=== PATIENT | female | born 1970 | race Caucasian/White ===

== ENCOUNTER 2023-04-11 13:01 | Outpatient (CLI) | payer OTHER, SELFPAY | END 2023-04-11 13:02 | disposition home or self-care (01) | LOC: RAD 13:02 | PROVIDERS: PCP Family Medicine; Visit Provider Internal Medicine Hematology & Oncology | DX: C50.919 Malignant neoplasm of unspecified site of unspecified female breast (principal); Z51.81 Encounter for therapeutic drug level monitoring; Z79.899 Other long term (current) drug therapy | CPT/HCPCS: 93306 ==

== ENCOUNTER 2023-08-07 09:58 | Outpatient (CLI) | payer OTHER, SELFPAY | END 2023-08-07 09:59 | disposition home or self-care (01) | LOC: RAD 09:59 | PROVIDERS: PCP Family Medicine; Visit Provider Internal Medicine Hematology & Oncology | DX: C50.919 Malignant neoplasm of unspecified site of unspecified female breast (principal) | CPT/HCPCS: 93306 ==

== ENCOUNTER 2023-08-19 10:01 | Outpatient (CLI) | payer OTHER, SELFPAY ==
--- NOTE | 2023-08-19 11:00 | CRLHL7_ITS ---
For Patients: As a result of the Century Cures Act, medical imaging exams and procedure reports are released immediately into your electronic medical record. You may view this report before your referring provider. If you have questions, please contact your health care provider. INDICATION: Dyspnea COMPARISON: Radiographs 04/08/2023 and 01/30/2023. TECHNIQUE: CT angiogram chest with contrast, pulmonary embolism protocol. Multiplanar axial, coronal, and sagittal reformats are included. MIP images to improve detection of pulmonary emboli are included. Intravenous contrast: 95 mL Isovue 370 FINDINGS: PE: Well-timed contrast bolus. No pulmonary emboli. Normal caliber main pulmonary artery. Normal sized right heart chambers. No reflux of contrast below the diaphragm. Heart and great vessels: Right IJ chest port distal tip superior cavoatrial junction. No pericardial effusion. Normal cardiac chamber size. No atherosclerotic plaques. No aortic aneurysm. Lungs: Inspiratory phase imaging. No nodules or masses. No consolidations. Normal appearance of the pulmonary interstitium. Pleura: No pleural effusion. No pneumothorax. Airway: Normal tracheobronchial tree. Lymph nodes: No thoracic adenopathy. Mediastinum: No pneumomediastinum. Bones: No fractures. No focal bone lesions. Normal for age. Chest wall: Biopsy clip right breast. No masses. Upper abdomen: Normal. IMPRESSION: Normal exam. No pulmonary embolus. Please note that all CT scans at this facility use dose modulation, iterative reconstruction, and/or weight-based dosing when appropriate to reduce radiation dose to as low as reasonably achievable. Dictated by Isabelle Hung MD @ 08/19/2023 11:13:53 AM (Electronically Signed)
== END 2023-08-19 10:02 | disposition home or self-care (01) ==
LOC: CT 10:02
PROVIDERS: PCP Family Medicine; Visit Provider Physician Assistant
DX: R06.00 Dyspnea, unspecified (principal); C50.919 Malignant neoplasm of unspecified site of unspecified female breast; R05.9 Cough, unspecified
CPT/HCPCS: 71275; Q9967

== ENCOUNTER 2023-09-24 14:00 | Outpatient (RCR) | payer OTHER, SELFPAY ==
--- NOTE | 2023-04-03 10:58 | URNOTE ---
Received request for prior auth for Pembrolizumab (J9271). Doxorubicin (J9000), Cyclophosphamide (J9070), Pegfilgrastim (J2506), Fosaprepitant (J1453) and Palonosetron (J2469). Per [email or web address] and Per Deyvi at [facility], these have been approved 04/04/2023-10/04/2023. Call ref #[id number]
--- NOTE | 2023-04-03 15:48 | PC.NURSE ---
Pt present at [facility] for labs. Hepatitis B & C drawn. Per JULIA Lagunas CBC/CMP/FSH/Estradiol/LH were drawn at [facility] already. Pt's treatment orders were moved to 04/15/2023 as that is when pt is scheduled to start chemo.
[2023-04-03 16:54] LABS: Hepatitis B Surface Antigen* Negative (Negative)
[2023-04-03 17:11] LABS: Hepatitis C Virus Antibody* Negative (Negative)
[2023-04-05 13:00] LABS: Hepatitis B Core Antibodies Negative (Negative)
--- NOTE | 2023-04-11 15:30 | ONC.NURNOTE ---
I met with patient and her daughter for chemotherapy teaching. Contents of the chemotherapy binder were reviewed. Side effects of treatment were reviewed. Patient instructed on what to report and how to report questions or concerns. Patient plans to use a cooling cap and is aware that she will need a support person to assist her with this. It will require a cooling period of approximately 1 hour prior to treatment and several hours after that she will complete at home.
[2023-04-15 10:06] LABS: Albumin* 4.3 g/dL (3.3-5.0); Chloride* 104 mmol/L (96-114); Potassium* 3.8 mmol/L (3.6-5.1); Sodium* 136 mmol/L (135-149)
[2023-04-15 10:09] LABS: Alanine Aminotransferase* 73 U/L (4-35); Alkaline Phosphatase* 58 U/L (40-150); Aspartate Amino Transferase* 38 U/L (12-35); Bilirubin Total* 1.3 mg/dL (0.1-1.5); Blood Urea Nitrogen* 17 mg/dL (7-30); Carbon Dioxide* 23 mmol/L (20-32); Creatinine* 0.9 mg/dL (0.5-1.5); Estimated Glomerular Filt Rate 76 ml/min; Glucose* 94 mg/dL (60-115); Total Protein* 6.7 g/dL (6.0-8.3)
[2023-04-15 10:10] LABS: Calcium* 9.2 mg/dL (8.4-10.6)
[2023-04-15 10:26] VITALS: BP 121/75; PULSE 60; RESP 16; TEMP 36.1; O2SAT 97
[2023-04-15 11:40] LABS: Basophils Percent Auto 0.2 % (0.0-3.0); Eosinophils Percent Auto 3.2 % (0.0-7.0); Hematocrit 42.8 % (33.0-51.0); Hemoglobin* 14.1 gm/dL (12.0-16.0); Immature Granulocytes Pct Auto 0.2 %; Lymphocytes Percent Auto 32.2 % (20-44); Mean Corpuscular HGB Conc 33 gm/dL (32-36); Mean Corpuscular Hemoglobin 30 pg (26-34); Mean Corpuscular Volume 91 fL (80-100); Monocytes Percent Auto 8.8 % (0.0-11.0); Neutrophils Percent Auto 55.4 % (42.0-72.0); Platelet Count* 180 K/uL (140-440); RDW Coefficient of Variation % 11.9 % (11.5-15.5); Red Blood Count 4.69 m/uL (4.00-5.20); White Blood Count* 4.44 K/uL (4.50-11.00)
[2023-04-15 11:50] LABS: Slide Review Reflex No
[2023-04-15] MEDS: PEMBROLIZUMAB 200 MG, TUBING PRIMARY 1 EACH, In-line 0.2 micron filter set 1 EACH in 0.... 216 MG IVPB (12:27)
[2023-04-15] MEDS: PALONOSETRON 0.25 MG/5 ML inj IV (13:12)
[2023-04-15] MEDS: dexAMETHasone 10 MG in 0.9 % SODIUM CHLORIDE 100 ml 100 ML 420 MG IVPB (13:12)
[2023-04-15] MEDS: FOSAPREPITANT 150 MG inj 150 MG in 0.9 % SODIUM CHLORIDE 250 ml 250 ML 780 MG IVPB (13:32)
[2023-04-15] MEDS: DOXOrubicin 2 MG/ML inj 120 MG IVP (14:02)
--- NOTE | 2023-04-15 14:49 | ONC.NURNOTE ---
chemo started a bit late today. taking time for labs to come back and questions from pt and family. went well. pt francisco well. did run cytoxin over 1 hr.
[2023-04-16 16:11] LABS: Cortisol, Serum 9.8 ug/dL
--- NOTE | 2023-04-19 14:36 | ONC.NURNOTE ---
Pt left message with breast navigators regarding questions about hair loss and sleep. Power Hammer Operator returned call and left message for pt to call the infusion center or she can speak to the breast navigators on Saturday of next week.
--- NOTE | 2023-04-19 16:04 | ONC.NURNOTE ---
Annetta called askinig when her hair starts falling out. 3 weeks. states tired today. enc her this is normal and rest. is feeling well. drinking water. reviewed s/s dehydration. reviewed taking antinausea meds prn day 3. enc her to call if any questions.
--- NOTE | 2023-04-22 15:29 | ONC.NURNOTE ---
Pt called with questions about body fluid precautions following chemo and also limits of exercise with her recently placed port. Reviewed [facility] protocol on chemo in body fluids x ~48 hrs. Reviewed to ease into large arm movements/weights and if port becomes sore, to rest that arm and ice as needed. Pt participates in [employer] and will adjust activities to her tolerance.
[2023-05-02 12:37] LABS: Basophils Absolute Auto 0.03 K/uL (0.00-0.30); Basophils Percent Auto 0.5 % (0.0-3.0); Eosinophils Absolute Auto 0.02 K/uL (0.00-0.50); Eosinophils Percent Auto 0.3 % (0.0-7.0); Hematocrit 38.1 % (33.0-51.0); Hemoglobin* 12.6 gm/dL (12.0-16.0); Immature Granulocytes Abs Auto 0.13 K/uL (0.00-0.30); Lymphocytes Absolute Auto 1.39 K/uL (0.90-2.90); Lymphocytes Percent Auto 21.3 % (20-44); Mean Corpuscular HGB Conc 33 gm/dL (32-36); Mean Corpuscular Hemoglobin 30 pg (26-34); Mean Corpuscular Volume 91 fL (80-100); Monocytes Percent Auto 10.6 % (0.0-11.0); Neutrophils Absolute Auto 4.28 K/uL (1.7-7.0); Neutrophils Percent Auto 65.3 % (42.0-72.0); Platelet Count* 190 K/uL (140-440); RDW Coefficient of Variation % 12.3 % (11.5-15.5); White Blood Count* 6.54 K/uL (4.50-11.00)
[2023-05-02 12:43] LABS: Slide Review Reflex No
[2023-05-02 12:57] LABS: Albumin* 4.2 g/dL (3.3-5.0); Chloride* 104 mmol/L (96-114); Sodium* 136 mmol/L (135-149)
[2023-05-02 12:59] LABS: Creatinine* 0.9 mg/dL (0.5-1.5); Estimated Glomerular Filt Rate 76 ml/min
[2023-05-02 13:00] LABS: Alanine Aminotransferase* 58 U/L (4-35); Alkaline Phosphatase* 73 U/L (40-150); Aspartate Amino Transferase* 37 U/L (12-35); Bilirubin Total* 0.5 mg/dL (0.1-1.5); Blood Urea Nitrogen* 17 mg/dL (7-30); Calcium* 8.9 mg/dL (8.4-10.6); Carbon Dioxide* 23 mmol/L (20-32); Glucose* 95 mg/dL (60-115); Total Protein* 6.6 g/dL (6.0-8.3)
--- NOTE | 2023-05-03 12:25 | URNOTE ---
Request for Pegfilgrastim (J2506) was denied (Kathryn DUMONT, [facility] aware 05/03/23) Ref#[id number]. Per Rep Tina05/03/23 at [facility] due to not meeting guidelines for neutropenia.
[2023-05-03 19:13] LABS: Cortisol, Serum 6.5 ug/dL
[2023-05-06 08:21] VITALS: BP 125/79; PULSE 64; RESP 16; TEMP 36; O2SAT 98
[2023-05-06] MEDS: PEMBROLIZUMAB 200 MG, TUBING PRIMARY 1 EACH, In-line 0.2 micron filter set 1 EACH in 0.... 216 MG IVPB (09:08)
[2023-05-06] MEDS: dexAMETHasone 10 MG in 0.9 % SODIUM CHLORIDE 100 ml 100 ML 404 MG IVPB (09:43)
[2023-05-06] MEDS: PALONOSETRON 0.25 MG/5 ML inj IV (09:43)
[2023-05-06] MEDS: FOSAPREPITANT 150 MG inj 150 MG in 0.9 % SODIUM CHLORIDE 250 ml 250 ML 800 MG IVPB (10:15)
[2023-05-06] MEDS: DOXOrubicin 2 MG/ML inj 120 MG IVP (10:42)
[2023-05-13 11:23] LABS: Basophils Percent Auto 0.5 % (0.0-3.0); Eosinophils Percent Auto 1.6 % (0.0-7.0); Hematocrit 35.4 % (33.0-51.0); Immature Granulocytes Pct Auto 1.6 %; Lymphocytes Percent Auto 29.5 % (20-44); Mean Corpuscular HGB Conc 34 gm/dL (32-36); Mean Corpuscular Hemoglobin 30 pg (26-34); Mean Corpuscular Volume 89 fL (80-100); Neutrophils Percent Auto 65.8 % (42.0-72.0); Platelet Count* 222 K/uL (140-440); RDW Coefficient of Variation % 12.1 % (11.5-15.5); Red Blood Count 3.96 m/uL (4.00-5.20)
[2023-05-13 12:25] LABS: Slide Review Reflex Yes; White Blood Count* 1.93 K/uL (4.50-11.00)
[2023-05-13 12:26] LABS: Slide Review Acceptable Review (Acceptable)
[2023-05-16 14:52] LABS: Basophils Percent Auto 0.9 % (0.0-3.0); Eosinophils Percent Auto 3.5 % (0.0-7.0); Hematocrit 34.8 % (33.0-51.0); Hemoglobin* 11.6 gm/dL (12.0-16.0); Lymphocytes Percent Auto 51.3 % (20-44); Mean Corpuscular HGB Conc 33 gm/dL (32-36); Mean Corpuscular Hemoglobin 30 pg (26-34); Mean Corpuscular Volume 90 fL (80-100); Monocytes Percent Auto 4.3 % (0.0-11.0); Platelet Count* 168 K/uL (140-440); RDW Coefficient of Variation % 11.9 % (11.5-15.5); Red Blood Count 3.86 m/uL (4.00-5.20)
[2023-05-16 15:21] LABS: Slide Review Reflex No; White Blood Count* 1.15 K/uL (4.50-11.00)
[2023-05-20 11:33] LABS: Eosinophils Percent Auto 6.1 % (0.0-7.0); Hematocrit 35.4 % (33.0-51.0); Hemoglobin* 11.9 gm/dL (12.0-16.0); Lymphocytes Percent Auto 54.1 % (20-44); Mean Corpuscular HGB Conc 34 gm/dL (32-36); Mean Corpuscular Hemoglobin 30 pg (26-34); Mean Corpuscular Volume 90 fL (80-100); Monocytes Percent Auto 17.3 % (0.0-11.0); Neutrophils Percent Auto 20.5 % (42.0-72.0); Platelet Count* 80 K/uL (140-440); RDW Coefficient of Variation % 12.4 % (11.5-15.5); Red Blood Count 3.95 m/uL (4.00-5.20)
[2023-05-20 12:07] LABS: Slide Review Reflex Yes; White Blood Count* 0.98 K/uL (4.50-11.00)
[2023-05-20 12:45] LABS: Slide Review Acceptable Review (Acceptable)
[2023-05-20 15:33] VITALS: BP 113/75; PULSE 77; RESP 16; TEMP 35.7; O2SAT 99
[2023-05-20] MEDS: TBO-FILGRASTIM 300 MCG/0.5 ML INJ SUBCUT (15:40)
[2023-05-21 10:27] VITALS: BP 116/78; PULSE 72; RESP 16; TEMP 36.6; O2SAT 98
[2023-05-21 11:12] LABS: Basophils Percent Auto 1.5 % (0.0-3.0); Eosinophils Percent Auto 5.3 % (0.0-7.0); Hematocrit 35.5 % (33.0-51.0); Hemoglobin* 11.9 gm/dL (12.0-16.0); Lymphocytes Percent Auto 43.6 % (20-44); Mean Corpuscular HGB Conc 34 gm/dL (32-36); Mean Corpuscular Hemoglobin 30 pg (26-34); Mean Corpuscular Volume 90 fL (80-100); Monocytes Percent Auto 26.3 % (0.0-11.0); Neutrophils Percent Auto 23.3 % (42.0-72.0); Platelet Count* 72 K/uL (140-440); Red Blood Count 3.93 m/uL (4.00-5.20)
[2023-05-21 11:35] LABS: White Blood Count* 1.33 K/uL (4.50-11.00)
[2023-05-21 11:36] LABS: Slide Review Acceptable Review (Acceptable); Slide Review Reflex Yes
[2023-05-21] MEDS: FILGRASTIM-SNDZ 300 MCG/0.5 ML SYRINGE SUBCUT (11:49)
--- NOTE | 2023-05-21 13:25 | URNOTE ---
Zarxio (Q5101) has been approved 300mcg daily, 05/16/2023-05/27/2023. Auth #[id number] Neulasta (J2506) has been approved, 6mg every 21 days. 05/28/2023-08/25/2023. Auth #[id number]
[2023-05-22 10:24] VITALS: BP 120/75; PULSE 80; RESP 16; TEMP 35.9; O2SAT 97
[2023-05-22 10:39] LABS: Eosinophils Percent Auto 4.1 % (0.0-7.0); Hematocrit 35.8 % (33.0-51.0); Hemoglobin* 12.1 gm/dL (12.0-16.0); Lymphocytes Percent Auto 40.3 % (20-44); Mean Corpuscular HGB Conc 34 gm/dL (32-36); Mean Corpuscular Hemoglobin 31 pg (26-34); Mean Corpuscular Volume 90 fL (80-100); Monocytes Percent Auto 29.1 % (0.0-11.0); Neutrophils Percent Auto 24.5 % (42.0-72.0); Platelet Count* 78 K/uL (140-440); RDW Coefficient of Variation % 13.1 % (11.5-15.5); Red Blood Count 3.97 m/uL (4.00-5.20)
[2023-05-22 11:09] LABS: Slide Review Reflex Yes; White Blood Count* 1.96 K/uL (4.50-11.00)
[2023-05-22 11:10] LABS: Slide Review Acceptable Review (Acceptable)
[2023-05-22] MEDS: FILGRASTIM-SNDZ 300 MCG/0.5 ML SYRINGE SUBCUT (11:22)
[2023-05-23 10:28] VITALS: BP 124/79; PULSE 66; RESP 16; TEMP 35.8; O2SAT 100
[2023-05-23 10:46] LABS: Basophils Absolute Auto 0.02 K/uL (0.00-0.30); Basophils Percent Auto 0.4 % (0.0-3.0); Eosinophils Absolute Auto 0.11 K/uL (0.00-0.50); Hematocrit 35.6 % (33.0-51.0); Hemoglobin* 11.9 gm/dL (12.0-16.0); Immature Granulocytes Abs Auto 0.31 K/uL (0.00-0.30); Immature Granulocytes Pct Auto 5.6 %; Lymphocytes Percent Auto 17.4 % (20-44); Mean Corpuscular HGB Conc 33 gm/dL (32-36); Mean Corpuscular Hemoglobin 30 pg (26-34); Mean Corpuscular Volume 91 fL (80-100); Monocytes Percent Auto 22.8 % (0.0-11.0); Neutrophils Absolute Auto 2.88 K/uL (1.7-7.0); Neutrophils Percent Auto 51.8 % (42.0-72.0); Platelet Count* 85 K/uL (140-440); RDW Coefficient of Variation % 13.4 % (11.5-15.5); Red Blood Count 3.92 m/uL (4.00-5.20); White Blood Count* 5.56 K/uL (4.50-11.00)
[2023-05-23 10:53] LABS: Slide Review Reflex Yes
[2023-05-23 11:26] LABS: Slide Review Acceptable Review (Acceptable)
[2023-05-27 08:19] LABS: Basophils Absolute Auto 0.03 K/uL (0.00-0.30); Basophils Percent Auto 0.5 % (0.0-3.0); Eosinophils Absolute Auto 0.07 K/uL (0.00-0.50); Eosinophils Percent Auto 1.2 % (0.0-7.0); Hematocrit 37.3 % (33.0-51.0); Hemoglobin* 12.6 gm/dL (12.0-16.0); Immature Granulocytes Abs Auto 0.74 K/uL (0.00-0.30); Immature Granulocytes Pct Auto 12.5 %; Lymphocytes Absolute Auto 1.34 K/uL (0.90-2.90); Lymphocytes Percent Auto 22.6 % (20-44); Mean Corpuscular HGB Conc 34 gm/dL (32-36); Mean Corpuscular Hemoglobin 30 pg (26-34); Mean Corpuscular Volume 90 fL (80-100); Monocytes Percent Auto 15.9 % (0.0-11.0); Neutrophils Absolute Auto 2.81 K/uL (1.7-7.0); Neutrophils Percent Auto 47.3 % (42.0-72.0); Platelet Count* 126 K/uL (140-440); Red Blood Count 4.16 m/uL (4.00-5.20); White Blood Count* 5.93 K/uL (4.50-11.00)
[2023-05-27 08:24] LABS: Slide Review Reflex Yes
[2023-05-27 08:33] LABS: Albumin* 4.1 g/dL (3.3-5.0); Chloride* 105 mmol/L (96-114); Potassium* 3.8 mmol/L (3.6-5.1); Sodium* 139 mmol/L (135-149)
[2023-05-27 08:36] LABS: Alanine Aminotransferase* 52 U/L (4-35); Alkaline Phosphatase* 55 U/L (40-150); Aspartate Amino Transferase* 42 U/L (12-35); Bilirubin Total* 0.5 mg/dL (0.1-1.5); Blood Urea Nitrogen* 18 mg/dL (7-30); Carbon Dioxide* 25 mmol/L (20-32); Creatinine* 0.8 mg/dL (0.5-1.5); Est. Creatinine Clearance* 75.26; Estimated Glomerular Filt Rate 88 ml/min; Glucose* 97 mg/dL (60-115); Total Protein* 6.4 g/dL (6.0-8.3)
[2023-05-27 08:37] LABS: Calcium* 9.1 mg/dL (8.4-10.6)
[2023-05-27 08:53] LABS: Slide Review Acceptable Review (Acceptable)
[2023-05-27] MEDS: PEMBROLIZUMAB 200 MG, TUBING PRIMARY 1 EACH, In-line 0.2 micron filter set 1 EACH in 0.... 216 MG IVPB (10:25)
[2023-05-27] MEDS: PALONOSETRON 0.25 MG/5 ML inj IV (11:00)
[2023-05-27] MEDS: dexAMETHasone 10 MG in 0.9 % SODIUM CHLORIDE 100 ml 100 ML 420 MG IVPB (11:00)
[2023-05-27] MEDS: FOSAPREPITANT 150 MG inj 150 MG in 0.9 % SODIUM CHLORIDE 250 ml 250 ML 780 MG IVPB (11:22)
[2023-05-27] MEDS: DOXOrubicin 2 MG/ML inj 120 MG IVP (11:50)
[2023-05-28] MEDS: PEGFILGRASTIM 6 MG/0.6 ML SYRINGE SUBCUT (12:58)
[2023-05-28 13:00] VITALS: BP 129/77; PULSE 65; RESP 14; TEMP 36.1; O2SAT 98
[2023-05-28 18:17] LABS: Cortisol, Serum 13.2 ug/dL
[2023-05-29 14:47] LABS: Total T3 135 ng/dL (80-200)
[2023-06-17 09:13] VITALS: BP 113/73; PULSE 83; RESP 18; TEMP 36.6; O2SAT 98
[2023-06-17 09:53] LABS: Eosinophils Percent Auto 0.2 % (0.0-7.0); Hematocrit 34.1 % (33.0-51.0); Hemoglobin* 11.6 gm/dL (12.0-16.0); Immature Granulocytes Pct Auto 0.5 %; Lymphocytes Percent Auto 18.1 % (20-44); Mean Corpuscular HGB Conc 34 gm/dL (32-36); Mean Corpuscular Hemoglobin 31 pg (26-34); Mean Corpuscular Volume 91 fL (80-100); Monocytes Percent Auto 13.4 % (0.0-11.0); Neutrophils Percent Auto 66.8 % (42.0-72.0); Platelet Count* 206 K/uL (140-440); RDW Coefficient of Variation % 14.6 % (11.5-15.5); Red Blood Count 3.76 m/uL (4.00-5.20); White Blood Count* 4.04 K/uL (4.50-11.00)
[2023-06-17 09:56] LABS: Slide Review Reflex No
[2023-06-17 10:08] LABS: Albumin* 4.1 g/dL (3.3-5.0); Chloride* 106 mmol/L (96-114)
[2023-06-17 10:09] LABS: Potassium* 3.7 mmol/L (3.6-5.1); Sodium* 137 mmol/L (135-149)
[2023-06-17 10:11] LABS: Aspartate Amino Transferase* 31 U/L (12-35); Bilirubin Total* 0.5 mg/dL (0.1-1.5); Carbon Dioxide* 24 mmol/L (20-32); Creatinine* 0.9 mg/dL (0.5-1.5); Estimated Glomerular Filt Rate 76 ml/min; Total Protein* 6.6 g/dL (6.0-8.3)
[2023-06-17 10:12] LABS: Alanine Aminotransferase* 34 U/L (4-35); Alkaline Phosphatase* 56 U/L (40-150); Blood Urea Nitrogen* 19 mg/dL (7-30); Calcium* 8.9 mg/dL (8.4-10.6); Glucose* 115 mg/dL (60-115)
--- NOTE | 2023-06-17 11:45 | ONC.NURNOTE ---
I met with patient during her infusion visit for chemotherapy education. Printed information re: Paclitaxel and Carboplatin was reviewed and given to patient. We discussed the use of cryotherapy to prevent neuropathy. Patient already has the information about how to order supplies.
[2023-06-17] MEDS: PEMBROLIZUMAB 200 MG, TUBING PRIMARY 1 EACH, In-line 0.2 micron filter set 1 EACH in 0.... 216 MG IVPB (12:24)
[2023-06-17] MEDS: PALONOSETRON 0.25 MG/5 ML inj IV (13:05)
[2023-06-17] MEDS: dexAMETHasone 10 MG in 0.9 % SODIUM CHLORIDE 100 ml 100 ML 420 MG IVPB (13:05)
[2023-06-17] MEDS: FOSAPREPITANT 150 MG inj 150 MG in 0.9 % SODIUM CHLORIDE 250 ml 250 ML 800 MG IVPB (13:27)
[2023-06-17] MEDS: DOXOrubicin 2 MG/ML inj 120 MG IVP (14:01)
[2023-06-18 20:17] LABS: Cortisol, Serum 11.1 ug/dL
--- NOTE | 2023-06-25 10:24 | URNOTE ---
Per [facility], Paclitaxel (J9267) has been approved 07/09/2023-10/09/2023. Carboplatin (J9045) has been approved 07/09/2023-10/07/2023 Pembrolizumab (J9271) has been approved 07/09/2023-10/09/2023 Per Hunter Estes at [facility], Palonoesetron (J2469) does not required prior auth if billing amount is less than $5000. Verified with carlyle Null that the billing amount is less than $5000.
[2023-07-09 08:37] LABS: Basophils Percent Auto 0.5 % (0.0-3.0); Eosinophils Percent Auto 1.6 % (0.0-7.0); Hematocrit 34.4 % (33.0-51.0); Hemoglobin* 11.5 gm/dL (12.0-16.0); Immature Granulocytes Pct Auto 0.5 %; Lymphocytes Percent Auto 17.1 % (20-44); Mean Corpuscular HGB Conc 33 gm/dL (32-36); Mean Corpuscular Hemoglobin 31 pg (26-34); Mean Corpuscular Volume 94 fL (80-100); Monocytes Percent Auto 14.3 % (0.0-11.0); Platelet Count* 187 K/uL (140-440); RDW Coefficient of Variation % 16.1 % (11.5-15.5); Red Blood Count 3.66 m/uL (4.00-5.20); White Blood Count* 4.26 K/uL (4.50-11.00)
[2023-07-09 08:38] LABS: Slide Review Reflex No
[2023-07-09 08:55] LABS: Albumin* 4.1 g/dL (3.3-5.0); Chloride* 106 mmol/L (96-114); Potassium* 4.1 mmol/L (3.6-5.1); Sodium* 138 mmol/L (135-149)
[2023-07-09 08:58] LABS: Alanine Aminotransferase* 37 U/L (4-35); Alkaline Phosphatase* 47 U/L (40-150); Anion Gap 5 mEq/L (7-15); Aspartate Amino Transferase* 37 U/L (12-35); Bilirubin Total* 0.5 mg/dL (0.1-1.5); Blood Urea Nitrogen* 14 mg/dL (7-30); Carbon Dioxide* 27 mmol/L (20-32); Creatinine* 0.8 mg/dL (0.5-1.5); Est. Creatinine Clearance* 75.26; Estimated Glomerular Filt Rate 88 ml/min; Glucose* 81 mg/dL (60-115); Total Protein* 6.5 g/dL (6.0-8.3)
[2023-07-09 08:59] LABS: Calcium* 9.5 mg/dL (8.4-10.6)
[2023-07-09] MEDS: PEMBROLIZUMAB 200 MG, TUBING PRIMARY 1 EACH, In-line 0.2 micron filter set 1 EACH in 0.... 216 MG IVPB (10:18)
[2023-07-09] MEDS: PALONOSETRON 0.25 MG/5 ML inj IV (10:50)
[2023-07-09] MEDS: dexAMETHasone 20 MG in 0.9 % SODIUM CHLORIDE 100 ml 100 ML 408 MG IVPB (10:50)
[2023-07-09] MEDS: FAMOTIDINE 20 MG, diphenhydrAMINE 50 MG in 0.9 % SODIUM CHLORIDE 100 ml 100 ML 309 MG IVPB (11:15)
[2023-07-09] MEDS: 0.9 % SODIUM CHLORIDE 250 ml IV (16:11)
[2023-07-09] MEDS: HEPARIN 500 UNIT/5 ML SYRINGE IVF (16:11)
[2023-07-09] MEDS: SODIUM CHLORIDE 0.9 % (FLUSH) 10 ML SYRINGE IVF (16:11)
--- NOTE | 2023-07-09 17:06 | ONC.NURNOTE ---
Tolerated Taxel/Carbo well.
[2023-07-11 03:24] LABS: Cortisol, Serum 10.3 ug/dL
[2023-07-15 08:54] VITALS: BP 122/75; PULSE 76; RESP 16; TEMP 36.4; O2SAT 97
[2023-07-15 09:19] LABS: Basophils Percent Auto 0.6 % (0.0-3.0); Hematocrit 32.9 % (33.0-51.0); Lymphocytes Percent Auto 23.1 % (20-44); Mean Corpuscular HGB Conc 33 gm/dL (32-36); Mean Corpuscular Hemoglobin 32 pg (26-34); Mean Corpuscular Volume 96 fL (80-100); Monocytes Percent Auto 7.8 % (0.0-11.0); Neutrophils Percent Auto 66.5 % (42.0-72.0); Platelet Count* 179 K/uL (140-440); RDW Coefficient of Variation % 15.1 % (11.5-15.5); Red Blood Count 3.43 m/uL (4.00-5.20); White Blood Count* 3.08 K/uL (4.50-11.00)
[2023-07-15 09:20] LABS: Slide Review Reflex No
[2023-07-15 09:32] LABS: Albumin* 3.9 g/dL (3.3-5.0); Chloride* 109 mmol/L (96-114)
[2023-07-15 09:33] LABS: Potassium* 3.9 mmol/L (3.6-5.1); Sodium* 138 mmol/L (135-149)
[2023-07-15 09:35] LABS: Anion Gap 5 mEq/L (7-15); Aspartate Amino Transferase* 33 U/L (12-35); Bilirubin Total* 0.7 mg/dL (0.1-1.5); Carbon Dioxide* 24 mmol/L (20-32); Creatinine* 0.9 mg/dL (0.5-1.5); Estimated Glomerular Filt Rate 76 ml/min; Total Protein* 6.3 g/dL (6.0-8.3)
[2023-07-15 09:36] LABS: Alanine Aminotransferase* 43 U/L (4-35); Alkaline Phosphatase* 42 U/L (40-150); Blood Urea Nitrogen* 17 mg/dL (7-30); Calcium* 9.2 mg/dL (8.4-10.6); Glucose* 111 mg/dL (60-115)
[2023-07-15] MEDS: FAMOTIDINE 20 MG, diphenhydrAMINE 50 MG in 0.9 % SODIUM CHLORIDE 100 ml 100 ML 309 MG IVPB (10:34)
[2023-07-15] MEDS: 0.9 % SODIUM CHLORIDE 250 ml IV (10:58)
[2023-07-15] MEDS: PALONOSETRON 0.25 MG/5 ML inj IV (11:05)
[2023-07-15] MEDS: dexAMETHasone 20 MG in 0.9 % SODIUM CHLORIDE 100 ml 100 ML 408 MG IVPB (11:05)
[2023-07-15] MEDS: HEPARIN 500 UNIT/5 ML SYRINGE IVF (13:30)
[2023-07-15] MEDS: SODIUM CHLORIDE 0.9 % (FLUSH) 10 ML SYRINGE IVF (13:30)
[2023-07-22 10:18] LABS: Basophils Percent Auto 0.6 % (0.0-3.0); Eosinophils Percent Auto 4.3 % (0.0-7.0); Hematocrit 32.4 % (33.0-51.0); Hemoglobin* 11.1 gm/dL (12.0-16.0); Immature Granulocytes Pct Auto 0.3 %; Lymphocytes Percent Auto 17.6 % (20-44); Mean Corpuscular HGB Conc 34 gm/dL (32-36); Mean Corpuscular Hemoglobin 32 pg (26-34); Mean Corpuscular Volume 95 fL (80-100); Monocytes Percent Auto 6.8 % (0.0-11.0); Neutrophils Percent Auto 70.4 % (42.0-72.0); Platelet Count* 164 K/uL (140-440); RDW Coefficient of Variation % 14.8 % (11.5-15.5); Red Blood Count 3.43 m/uL (4.00-5.20); White Blood Count* 3.52 K/uL (4.50-11.00)
[2023-07-22 10:39] LABS: Slide Review Reflex No
[2023-07-22 10:43] VITALS: BP 110/67; PULSE 68; RESP 16; TEMP 36.2; O2SAT 98
[2023-07-22 10:46] LABS: Albumin* 3.9 g/dL (3.3-5.0); Chloride* 106 mmol/L (96-114); Potassium* 3.8 mmol/L (3.6-5.1); Sodium* 136 mmol/L (135-149)
[2023-07-22 10:49] LABS: Alanine Aminotransferase* 46 U/L (4-35); Alkaline Phosphatase* 44 U/L (40-150); Anion Gap 4 mEq/L (7-15); Aspartate Amino Transferase* 37 U/L (12-35); Bilirubin Total* 0.6 mg/dL (0.1-1.5); Blood Urea Nitrogen* 19 mg/dL (7-30); Carbon Dioxide* 26 mmol/L (20-32); Creatinine* 0.8 mg/dL (0.5-1.5); Est. Creatinine Clearance* 75.26; Estimated Glomerular Filt Rate 88 ml/min; Glucose* 118 mg/dL (60-115); Total Protein* 6.3 g/dL (6.0-8.3)
[2023-07-22 10:50] LABS: Calcium* 9.1 mg/dL (8.4-10.6)
[2023-07-22] MEDS: 0.9 % SODIUM CHLORIDE 250 ml IV (11:00)
[2023-07-22] MEDS: PALONOSETRON 0.25 MG/5 ML inj IV (11:26)
[2023-07-22] MEDS: dexAMETHasone 20 MG in 0.9 % SODIUM CHLORIDE 100 ml 100 ML 420 MG IVPB (11:26)
[2023-07-22] MEDS: FAMOTIDINE 20 MG, diphenhydrAMINE 50 MG in 0.9 % SODIUM CHLORIDE 100 ml 100 ML 315 MG IVPB (11:44)
[2023-07-22] MEDS: HEPARIN 500 UNIT/5 ML SYRINGE IVF (14:15)
[2023-07-22] MEDS: SODIUM CHLORIDE 0.9 % (FLUSH) 10 ML SYRINGE IVF (14:15)
--- NOTE | 2023-07-26 16:27 | ONC.NURNOTE ---
Pt called saying she's having scant bloody noses the last few days, describing it as not dripping but she can feel a clot in her nose. She began using a humidifier last night. Recommended pt swab aquaphor just inside nostrils 1-2x BID for moisturizing. She also notes taste changes, says her tongue feels oily but denies sores or pain. Recommended pt begin salt or baking soda rinses QID to prevent mucositis. Pt agreeable to try these ideas.
[2023-07-29 08:51] LABS: Basophils Percent Auto 0.6 % (0.0-3.0); Eosinophils Percent Auto 3.3 % (0.0-7.0); Hematocrit 31.2 % (33.0-51.0); Hemoglobin* 10.7 gm/dL (12.0-16.0); Immature Granulocytes Pct Auto 1.2 %; Lymphocytes Percent Auto 23.4 % (20-44); Mean Corpuscular HGB Conc 34 gm/dL (32-36); Mean Corpuscular Hemoglobin 32 pg (26-34); Mean Corpuscular Volume 94 fL (80-100); Monocytes Percent Auto 5.9 % (0.0-11.0); Neutrophils Percent Auto 65.6 % (42.0-72.0); Platelet Count* 144 K/uL (140-440); RDW Coefficient of Variation % 14.2 % (11.5-15.5); Red Blood Count 3.31 m/uL (4.00-5.20); White Blood Count* 3.38 K/uL (4.50-11.00)
[2023-07-29 08:53] LABS: Slide Review Reflex No
[2023-07-29 09:06] LABS: Albumin* 3.8 g/dL (3.3-5.0); Chloride* 107 mmol/L (96-114)
[2023-07-29 09:07] LABS: Potassium* 3.8 mmol/L (3.6-5.1); Sodium* 138 mmol/L (135-149)
[2023-07-29 09:09] LABS: Anion Gap 8 mEq/L (7-15); Aspartate Amino Transferase* 42 U/L (12-35); Bilirubin Total* 0.6 mg/dL (0.1-1.5); Blood Urea Nitrogen* 24 mg/dL (7-30); Carbon Dioxide* 23 mmol/L (20-32); Creatinine* 0.9 mg/dL (0.5-1.5); Estimated Glomerular Filt Rate 76 ml/min; Total Protein* 6.3 g/dL (6.0-8.3)
[2023-07-29 09:10] LABS: Alanine Aminotransferase* 60 U/L (4-35); Alkaline Phosphatase* 54 U/L (40-150); Calcium* 8.9 mg/dL (8.4-10.6); Glucose* 106 mg/dL (60-115)
[2023-07-29] MEDS: PEMBROLIZUMAB 200 MG, TUBING PRIMARY 1 EACH, In-line 0.2 micron filter set 1 EACH in 0.... 216 MG IVPB (10:41)
[2023-07-29] MEDS: SODIUM CHLORIDE 0.9 % (FLUSH) 10 ML SYRINGE IVF (11:27)
[2023-07-29] MEDS: dexAMETHasone 20 MG in 0.9 % SODIUM CHLORIDE 100 ml 100 ML 408 MG IVPB (11:27)
[2023-07-29] MEDS: PALONOSETRON 0.25 MG/5 ML inj IV (11:27)
[2023-07-29] MEDS: 0.9 % SODIUM CHLORIDE 250 ml IV (11:28)
[2023-07-29] MEDS: HEPARIN 500 UNIT/5 ML SYRINGE IVF (11:28)
[2023-07-29] MEDS: FAMOTIDINE 20 MG, diphenhydrAMINE 50 MG in 0.9 % SODIUM CHLORIDE 100 ml 100 ML 309 MG IVPB (11:52)
[2023-07-31 07:45] LABS: Cortisol, Serum 13.1 ug/dL
[2023-08-05 08:29] VITALS: BP 112/54; PULSE 94; RESP 16; TEMP 36.6; O2SAT 98
[2023-08-05 09:00] LABS: Basophils Percent Auto 0.5 % (0.0-3.0); Eosinophils Percent Auto 2.5 % (0.0-7.0); Hematocrit 29.8 % (33.0-51.0); Hemoglobin* 10.3 gm/dL (12.0-16.0); Immature Granulocytes Pct Auto 0.5 %; Lymphocytes Percent Auto 16.6 % (20-44); Mean Corpuscular HGB Conc 35 gm/dL (32-36); Mean Corpuscular Hemoglobin 32 pg (26-34); Mean Corpuscular Volume 93 fL (80-100); Monocytes Percent Auto 12.1 % (0.0-11.0); Neutrophils Percent Auto 67.8 % (42.0-72.0); Platelet Count* 88 K/uL (140-440); RDW Coefficient of Variation % 13.9 % (11.5-15.5); Red Blood Count 3.19 m/uL (4.00-5.20)
[2023-08-05 09:07] LABS: Slide Review Reflex Yes; White Blood Count* 1.99 K/uL (4.50-11.00)
[2023-08-05 09:14] LABS: Albumin* 3.9 g/dL (3.3-5.0); Chloride* 105 mmol/L (96-114); Potassium* 3.7 mmol/L (3.6-5.1); Sodium* 135 mmol/L (135-149)
[2023-08-05 09:17] LABS: Alanine Aminotransferase* 74 U/L (4-35); Alkaline Phosphatase* 51 U/L (40-150); Anion Gap 6 mEq/L (7-15); Aspartate Amino Transferase* 59 U/L (12-35); Bilirubin Total* 0.9 mg/dL (0.1-1.5); Blood Urea Nitrogen* 14 mg/dL (7-30); Carbon Dioxide* 24 mmol/L (20-32); Creatinine* 0.9 mg/dL (0.5-1.5); Estimated Glomerular Filt Rate 76 ml/min; Glucose* 155 mg/dL (60-115); Total Protein* 6.4 g/dL (6.0-8.3)
[2023-08-05 09:28] LABS: Slide Review Acceptable Review (Acceptable)
--- NOTE | 2023-08-05 09:32 | PC.NURSE ---
Pt present at [facility] for labs and chemo. Plt 88, per Shelbie Andre APRN and hold parameters, chemo held this week. Pt will return next week and will also be scheduled with a provider to be assessed. RN educated pt on NSAID use and bleeding monitoring. Annetta hasn't used any ibuprofen recently. 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 Annetta feels that she is having post nasal drip and also has had mild nose bleeds. No fevers. RN advised pt to see PCP and take a covid test. Pt verbalized understanding. Breast NN will call pt with appt times for next Saturday with addition of provider visit.
[2023-08-12 08:00] VITALS: BP 121/74; PULSE 73; RESP 16; TEMP 36.1; O2SAT 98
[2023-08-12 08:18] LABS: Basophils Percent Auto 0.4 % (0.0-3.0); Eosinophils Percent Auto 2.2 % (0.0-7.0); Hematocrit 29.8 % (33.0-51.0); Lymphocytes Percent Auto 29.7 % (20-44); Mean Corpuscular HGB Conc 34 gm/dL (32-36); Mean Corpuscular Hemoglobin 33 pg (26-34); Mean Corpuscular Volume 97 fL (80-100); Monocytes Percent Auto 8.3 % (0.0-11.0); Neutrophils Percent Auto 59.4 % (42.0-72.0); Platelet Count* 102 K/uL (140-440); RDW Coefficient of Variation % 15.2 % (11.5-15.5); Red Blood Count 3.06 m/uL (4.00-5.20); Slide Review Reflex No; White Blood Count* 2.29 K/uL (4.50-11.00)
[2023-08-12 08:30] LABS: Chloride* 108 mmol/L (96-114)
[2023-08-12 08:31] LABS: Albumin* 3.7 g/dL (3.3-5.0); Potassium* 3.7 mmol/L (3.6-5.1); Sodium* 139 mmol/L (135-149)
[2023-08-12 08:33] LABS: Anion Gap 7 mEq/L (7-15); Carbon Dioxide* 24 mmol/L (20-32); Creatinine* 0.7 mg/dL (0.5-1.5); Est. Creatinine Clearance* 86.01; Estimated Glomerular Filt Rate 103 ml/min
[2023-08-12 08:34] LABS: Alanine Aminotransferase* 42 U/L (4-35); Alkaline Phosphatase* 46 U/L (40-150); Aspartate Amino Transferase* 36 U/L (12-35); Bilirubin Total* 0.7 mg/dL (0.1-1.5); Blood Urea Nitrogen* 14 mg/dL (7-30); Calcium* 8.5 mg/dL (8.4-10.6); Glucose* 110 mg/dL (60-115); Total Protein* 5.7 g/dL (6.0-8.3)
[2023-08-12] MEDS: PALONOSETRON 0.25 MG/5 ML inj IV (11:03)
[2023-08-12] MEDS: dexAMETHasone 20 MG in 0.9 % SODIUM CHLORIDE 100 ml 100 ML 408 MG IVPB (11:27)
[2023-08-12] MEDS: FAMOTIDINE 20 MG, diphenhydrAMINE 25 MG in 0.9 % SODIUM CHLORIDE 100 ml 100 ML 415 MG IVPB (11:45)
[2023-08-12] MEDS: HEPARIN 500 UNIT/5 ML SYRINGE IVF (14:16)
[2023-08-12] MEDS: SODIUM CHLORIDE 0.9 % (FLUSH) 10 ML SYRINGE IVF ×2 (14:16→14:17)
[2023-08-12] MEDS: 0.9 % SODIUM CHLORIDE 250 ml IV (14:23)
[2023-08-19 08:08] LABS: Basophils Percent Auto 0.4 % (0.0-3.0); Eosinophils Percent Auto 2.8 % (0.0-7.0); Hematocrit 30.8 % (33.0-51.0); Hemoglobin* 10.4 gm/dL (12.0-16.0); Immature Granulocytes Pct Auto 0.8 %; Lymphocytes Percent Auto 36.2 % (20-44); Mean Corpuscular HGB Conc 34 gm/dL (32-36); Mean Corpuscular Hemoglobin 32 pg (26-34); Mean Corpuscular Volume 96 fL (80-100); Monocytes Percent Auto 6.1 % (0.0-11.0); Neutrophils Percent Auto 53.7 % (42.0-72.0); Platelet Count* 138 K/uL (140-440); RDW Coefficient of Variation % 14.4 % (11.5-15.5); Red Blood Count 3.21 m/uL (4.00-5.20); White Blood Count* 2.46 K/uL (4.50-11.00)
[2023-08-19 08:09] LABS: Slide Review Reflex No
[2023-08-19 08:21] LABS: Albumin* 3.9 g/dL (3.3-5.0); Chloride* 106 mmol/L (96-114); Potassium* 3.9 mmol/L (3.6-5.1); Sodium* 137 mmol/L (135-149)
[2023-08-19 08:23] LABS: Creatinine* 0.8 mg/dL (0.5-1.5); Est. Creatinine Clearance* 72.34; Estimated Glomerular Filt Rate 88 ml/min
[2023-08-19 08:24] LABS: Alanine Aminotransferase* 45 U/L (4-35); Alkaline Phosphatase* 50 U/L (40-150); Anion Gap 7 mEq/L (7-15); Aspartate Amino Transferase* 37 U/L (12-35); Bilirubin Total* 0.7 mg/dL (0.1-1.5); Blood Urea Nitrogen* 17 mg/dL (7-30); Carbon Dioxide* 24 mmol/L (20-32); Glucose* 119 mg/dL (60-115); Total Protein* 6.2 g/dL (6.0-8.3)
[2023-08-19 08:25] LABS: Calcium* 8.7 mg/dL (8.4-10.6)
[2023-08-19] MEDS: PALONOSETRON 0.25 MG/5 ML inj IV (11:54)
[2023-08-19] MEDS: dexAMETHasone 20 MG in 0.9 % SODIUM CHLORIDE 100 ml 100 ML 408 MG IVPB (11:56)
[2023-08-19] MEDS: FAMOTIDINE 20 MG, diphenhydrAMINE 25 MG in 0.9 % SODIUM CHLORIDE 100 ml 100 ML 309 MG IVPB (12:16)
[2023-08-19] MEDS: 0.9 % SODIUM CHLORIDE 250 ml IV (12:45)
[2023-08-19] MEDS: SODIUM CHLORIDE 0.9 % (FLUSH) 10 ML SYRINGE IVF ×2 (12:45→14:38)
[2023-08-19] MEDS: HEPARIN 500 UNIT/5 ML SYRINGE IVF (14:38)
[2023-08-26 08:14] LABS: Basophils Percent Auto 0.5 % (0.0-3.0); Hematocrit 30.3 % (33.0-51.0); Hemoglobin* 10.2 gm/dL (12.0-16.0); Immature Granulocytes Pct Auto 0.5 %; Lymphocytes Percent Auto 44.3 % (20-44); Mean Corpuscular HGB Conc 34 gm/dL (32-36); Mean Corpuscular Hemoglobin 33 pg (26-34); Mean Corpuscular Volume 97 fL (80-100); Neutrophils Percent Auto 44.7 % (42.0-72.0); Platelet Count* 163 K/uL (140-440); RDW Coefficient of Variation % 14.5 % (11.5-15.5); Red Blood Count 3.11 m/uL (4.00-5.20); White Blood Count* 2.01 K/uL (4.50-11.00)
[2023-08-26 08:18] LABS: Slide Review Reflex No
[2023-08-26 08:27] LABS: Albumin* 3.9 g/dL (3.3-5.0); Chloride* 108 mmol/L (96-114); Sodium* 137 mmol/L (135-149)
[2023-08-26 08:28] LABS: Potassium* 3.7 mmol/L (3.6-5.1)
[2023-08-26 08:29] VITALS: BP 105/70; PULSE 78; RESP 16; TEMP 36.1; O2SAT 98
[2023-08-26 08:30] LABS: Alanine Aminotransferase* 63 U/L (4-35); Alkaline Phosphatase* 49 U/L (40-150); Anion Gap 5 mEq/L (7-15); Aspartate Amino Transferase* 58 U/L (12-35); Bilirubin Total* 0.8 mg/dL (0.1-1.5); Blood Urea Nitrogen* 17 mg/dL (7-30); Calcium* 8.7 mg/dL (8.4-10.6); Carbon Dioxide* 24 mmol/L (20-32); Creatinine* 0.8 mg/dL (0.5-1.5); Est. Creatinine Clearance* 72.34; Estimated Glomerular Filt Rate 88 ml/min; Glucose* 118 mg/dL (60-115); Total Protein* 6.2 g/dL (6.0-8.3)
--- NOTE | 2023-08-26 12:07 | PC.NURSE ---
Pt present at [facility] today for labs and treatment. Pt had been scheduled to see Shelbie Andre APRN, however, because Annetta saw GAUTAM last week and is feeling better, that visit was cancelled. Labs revealed ANC 900. Discussed with Desi Schafer PA-C who gave orders to delay treatment by 1 week. RN shared this update with Annetta. Pt was disappointed, support offered. Pt also shared that her surgery had recently been scheduled. she worries about timing now that there has been a delay. Discussed with JULIA Melomarketing production manager who went ahead and scheduled pt to see Dr. Fuentes tomorrow, virtually, to discuss next steps.
[2023-08-27 23:46] LABS: Cortisol, Serum 12.6 ug/dL
[2023-08-28 09:13] VITALS: BP 133/82; PULSE 72; RESP 18; TEMP 36.2; O2SAT 98
[2023-08-28 09:41] LABS: Eosinophils Percent Auto 1.1 % (0.0-7.0); Hematocrit 31.7 % (33.0-51.0); Hemoglobin* 10.5 gm/dL (12.0-16.0); Immature Granulocytes Pct Auto 1.1 %; Lymphocytes Percent Auto 36.8 % (20-44); Mean Corpuscular HGB Conc 33 gm/dL (32-36); Mean Corpuscular Hemoglobin 33 pg (26-34); Mean Corpuscular Volume 98 fL (80-100); Monocytes Percent Auto 10.3 % (0.0-11.0); Neutrophils Percent Auto 50.7 % (42.0-72.0); Platelet Count* 165 K/uL (140-440); RDW Coefficient of Variation % 15.5 % (11.5-15.5); Red Blood Count 3.22 m/uL (4.00-5.20)
[2023-08-28 09:45] LABS: Slide Review Reflex Yes
[2023-08-28 09:46] LABS: White Blood Count* 1.74 K/uL (4.50-11.00)
[2023-08-28 10:20] LABS: Slide Review Acceptable Review (Acceptable)
--- NOTE | 2023-08-29 10:31 | URNOTE ---
Received request for prior authorization for [employer] (Q5110). Per [email or web address] and Per Matilde Morales at [facility], Nivestym Q5110 does not require prior authorization. Call ref #[id number]. [id number].
[2023-08-30 13:32] VITALS: BP 124/67; PULSE 71; RESP 16; TEMP 36.9; O2SAT 100
[2023-08-30] MEDS: FILGRASTIM-AAFI 480 MCG/0.8 ML SYRINGE SUBCUT (13:46)
[2023-09-02 08:02] VITALS: BP 118/79; PULSE 75; RESP 16; TEMP 36; O2SAT 98
[2023-09-02 08:17] LABS: Basophils Percent Auto 0.5 % (0.0-3.0); Eosinophils Percent Auto 1.2 % (0.0-7.0); Hemoglobin* 10.9 gm/dL (12.0-16.0); Lymphocytes Percent Auto 22.4 % (20-44); Mean Corpuscular HGB Conc 33 gm/dL (32-36); Mean Corpuscular Hemoglobin 33 pg (26-34); Mean Corpuscular Volume 99 fL (80-100); Neutrophils Percent Auto 63.9 % (42.0-72.0); Platelet Count* 141 K/uL (140-440); RDW Coefficient of Variation % 15.5 % (11.5-15.5); Red Blood Count 3.33 m/uL (4.00-5.20); White Blood Count* 4.07 K/uL (4.50-11.00)
[2023-09-02 08:23] LABS: Slide Review Reflex No
[2023-09-02 08:29] LABS: Chloride* 109 mmol/L (96-114)
[2023-09-02 08:30] LABS: Albumin* 3.9 g/dL (3.3-5.0); Potassium* 3.6 mmol/L (3.6-5.1); Sodium* 138 mmol/L (135-149)
[2023-09-02 08:33] LABS: Alanine Aminotransferase* 47 U/L (4-35); Alkaline Phosphatase* 45 U/L (40-150); Anion Gap 4 mEq/L (7-15); Aspartate Amino Transferase* 49 U/L (12-35); Bilirubin Total* 0.7 mg/dL (0.1-1.5); Blood Urea Nitrogen* 17 mg/dL (7-30); Carbon Dioxide* 25 mmol/L (20-32); Creatinine* 0.8 mg/dL (0.5-1.5); Est. Creatinine Clearance* 72.34; Estimated Glomerular Filt Rate 88 ml/min; Glucose* 145 mg/dL (60-115); Total Protein* 6.2 g/dL (6.0-8.3)
[2023-09-02 08:34] LABS: Calcium* 8.7 mg/dL (8.4-10.6)
[2023-09-02] MEDS: PEMBROLIZUMAB 200 MG, TUBING PRIMARY 1 EACH, In-line 0.2 micron filter set 1 EACH in 0.... 216 MG IVPB (09:24)
[2023-09-02] MEDS: PALONOSETRON 0.25 MG/5 ML inj IV (09:57)
[2023-09-02] MEDS: dexAMETHasone 20 MG in 0.9 % SODIUM CHLORIDE 100 ml 100 ML 408 MG IVPB (09:57)
[2023-09-02] MEDS: HEPARIN 500 UNIT/5 ML SYRINGE IVF (09:58)
[2023-09-02] MEDS: 0.9 % SODIUM CHLORIDE 250 ml IV (09:58)
[2023-09-02] MEDS: SODIUM CHLORIDE 0.9 % (FLUSH) 10 ML SYRINGE IVF (09:58)
[2023-09-02] MEDS: FAMOTIDINE 20 MG, diphenhydrAMINE 25 MG in 0.9 % SODIUM CHLORIDE 100 ml 100 ML 408 MG IVPB (10:26)
[2023-09-03 13:33] VITALS: BP 123/74; PULSE 63; RESP 16; TEMP 37.4; O2SAT 98
[2023-09-03] MEDS: FILGRASTIM-AAFI 480 MCG/0.8 ML SYRINGE SUBCUT (13:39)
[2023-09-03 13:50] VITALS: TEMP 36.1
[2023-09-09 08:04] LABS: Basophils Percent Auto 0.3 % (0.0-3.0); Hematocrit 32.2 % (33.0-51.0); Hemoglobin* 10.9 gm/dL (12.0-16.0); Immature Granulocytes Pct Auto 2.3 %; Lymphocytes Percent Auto 23.4 % (20-44); Mean Corpuscular HGB Conc 34 gm/dL (32-36); Mean Corpuscular Hemoglobin 33 pg (26-34); Mean Corpuscular Volume 96 fL (80-100); Monocytes Percent Auto 9.6 % (0.0-11.0); Neutrophils Percent Auto 62.4 % (42.0-72.0); Platelet Count* 124 K/uL (140-440); RDW Coefficient of Variation % 14.2 % (11.5-15.5); Red Blood Count 3.35 m/uL (4.00-5.20); White Blood Count* 3.97 K/uL (4.50-11.00)
[2023-09-09 08:10] LABS: Slide Review Reflex No
[2023-09-09 08:25] LABS: Albumin* 3.7 g/dL (3.3-5.0); Chloride* 107 mmol/L (96-114)
[2023-09-09 08:26] LABS: Potassium* 4.1 mmol/L (3.6-5.1); Sodium* 138 mmol/L (135-149)
[2023-09-09 08:28] LABS: Alanine Aminotransferase* 46 U/L (4-35); Alkaline Phosphatase* 53 U/L (40-150); Aspartate Amino Transferase* 46 U/L (12-35); Bilirubin Total* 0.5 mg/dL (0.1-1.5); Blood Urea Nitrogen* 15 mg/dL (7-30); Carbon Dioxide* 25 mmol/L (20-32); Creatinine* 0.8 mg/dL (0.5-1.5); Est. Creatinine Clearance* 72.34; Estimated Glomerular Filt Rate 88 ml/min; Glucose* 109 mg/dL (60-115)
[2023-09-09 08:29] LABS: Calcium* 8.5 mg/dL (8.4-10.6)
[2023-09-09 08:30] LABS: Anion Gap 6 mEq/L (7-15)
[2023-09-09] MEDS: HEPARIN 500 UNIT/5 ML SYRINGE IVF (09:31)
[2023-09-09] MEDS: SODIUM CHLORIDE 0.9 % (FLUSH) 10 ML SYRINGE IVF (09:31)
[2023-09-09] MEDS: PALONOSETRON 0.25 MG/5 ML inj IV (09:31)
[2023-09-09] MEDS: dexAMETHasone 20 MG in 0.9 % SODIUM CHLORIDE 100 ml 100 ML 408 MG IVPB (09:31)
[2023-09-09] MEDS: 0.9 % SODIUM CHLORIDE 250 ml IV (09:32)
[2023-09-09] MEDS: FAMOTIDINE 20 MG, diphenhydrAMINE 25 MG in 0.9 % SODIUM CHLORIDE 100 ml 100 ML 309 MG IVPB (09:53)
[2023-09-09] MEDS: SODIUM CHLORIDE 0.9% IVPB (11:45)
[2023-09-09] MEDS: CARBOPLATIN IVPB (11:45)
[2023-09-09] MEDS: TUBING SECONDARY IVPB (11:45)
[2023-09-10 13:58] VITALS: BP 127/76; PULSE 70; RESP 16; TEMP 36.4; O2SAT 97
[2023-09-10] MEDS: FILGRASTIM-AAFI 480 MCG/0.8 ML SYRINGE SUBCUT (14:19)
[2023-09-16 08:00] VITALS: BP 136/79; PULSE 78; RESP 18; TEMP 36.6; O2SAT 98
[2023-09-16 08:23] LABS: Basophils Percent Auto 0.4 % (0.0-3.0); Eosinophils Percent Auto 3.6 % (0.0-7.0); Hematocrit 31.3 % (33.0-51.0); Hemoglobin* 10.6 gm/dL (12.0-16.0); Immature Granulocytes Pct Auto 1.5 %; Lymphocytes Percent Auto 28.5 % (20-44); Mean Corpuscular HGB Conc 34 gm/dL (32-36); Mean Corpuscular Hemoglobin 32 pg (26-34); Mean Corpuscular Volume 96 fL (80-100); Platelet Count* 112 K/uL (140-440); Red Blood Count 3.27 m/uL (4.00-5.20); White Blood Count* 2.74 K/uL (4.50-11.00)
[2023-09-16 08:26] LABS: Slide Review Reflex No
[2023-09-16 08:36] LABS: Albumin* 3.7 g/dL (3.3-5.0); Chloride* 107 mmol/L (96-114); Potassium* 3.7 mmol/L (3.6-5.1); Sodium* 138 mmol/L (135-149)
[2023-09-16 08:38] LABS: Creatinine* 0.8 mg/dL (0.5-1.5); Est. Creatinine Clearance* 72.34; Estimated Glomerular Filt Rate 88 ml/min
[2023-09-16 08:39] LABS: Alanine Aminotransferase* 59 U/L (4-35); Alkaline Phosphatase* 59 U/L (40-150); Anion Gap 7 mEq/L (7-15); Aspartate Amino Transferase* 55 U/L (12-35); Bilirubin Total* 0.7 mg/dL (0.1-1.5); Blood Urea Nitrogen* 14 mg/dL (7-30); Calcium* 8.8 mg/dL (8.4-10.6); Carbon Dioxide* 24 mmol/L (20-32); Glucose* 121 mg/dL (60-115); Total Protein* 6.1 g/dL (6.0-8.3)
[2023-09-16] MEDS: PALONOSETRON 0.25 MG/5 ML inj IV (09:41)
[2023-09-16] MEDS: 0.9 % SODIUM CHLORIDE 250 ml IV (09:41)
[2023-09-16] MEDS: dexAMETHasone 20 MG in 0.9 % SODIUM CHLORIDE 100 ml 100 ML 408 MG IVPB (09:41)
[2023-09-16] MEDS: FAMOTIDINE 20 MG, diphenhydrAMINE 25 MG in 0.9 % SODIUM CHLORIDE 100 ml 100 ML 307.5 MG IVPB (10:03)
[2023-09-16] MEDS: TUBING SECONDARY IVPB (11:51)
[2023-09-16] MEDS: SODIUM CHLORIDE 0.9% IVPB (11:51)
[2023-09-16] MEDS: CARBOPLATIN IVPB (11:51)
[2023-09-17 14:07] VITALS: BP 149/78; PULSE 72; RESP 16; TEMP 36.6; O2SAT 98
[2023-09-17] MEDS: FILGRASTIM-AAFI 480 MCG/0.8 ML SYRINGE SUBCUT (14:33)
[2023-09-23 07:59] VITALS: BP 112/76; PULSE 65; RESP 16; TEMP 37; O2SAT 98
[2023-09-23 08:17] LABS: Basophils Percent Auto 0.4 % (0.0-3.0); Eosinophils Percent Auto 2.2 % (0.0-7.0); Hematocrit 30.9 % (33.0-51.0); Hemoglobin* 10.4 gm/dL (12.0-16.0); Lymphocytes Percent Auto 34.2 % (20-44); Mean Corpuscular HGB Conc 34 gm/dL (32-36); Mean Corpuscular Hemoglobin 33 pg (26-34); Mean Corpuscular Volume 98 fL (80-100); Monocytes Percent Auto 11.6 % (0.0-11.0); Neutrophils Percent Auto 47.6 % (42.0-72.0); Platelet Count* 130 K/uL (140-440); RDW Coefficient of Variation % 14.3 % (11.5-15.5); Red Blood Count 3.15 m/uL (4.00-5.20); White Blood Count* 2.25 K/uL (4.50-11.00)
[2023-09-23 08:21] LABS: Slide Review Reflex No
[2023-09-23 08:32] LABS: Albumin* 3.8 g/dL (3.3-5.0); Chloride* 107 mmol/L (96-114)
[2023-09-23 08:33] LABS: Potassium* 3.7 mmol/L (3.6-5.1); Sodium* 140 mmol/L (135-149)
[2023-09-23 08:35] LABS: Alanine Aminotransferase* 75 U/L (4-35); Alkaline Phosphatase* 63 U/L (40-150); Anion Gap 9 mEq/L (7-15); Aspartate Amino Transferase* 42 U/L (12-35); Bilirubin Total* 0.6 mg/dL (0.1-1.5); Blood Urea Nitrogen* 15 mg/dL (7-30); Carbon Dioxide* 24 mmol/L (20-32); Creatinine* 0.8 mg/dL (0.5-1.5); Est. Creatinine Clearance* 72.34; Estimated Glomerular Filt Rate 88 ml/min; Glucose* 131 mg/dL (60-115)
[2023-09-23 08:36] LABS: Calcium* 8.8 mg/dL (8.4-10.6)
--- NOTE | 2023-09-23 08:56 | ONC.NURNOTE ---
Annetta stated 2 days ago finished acyclvoir for occ. lip sores. lips healed, dry a bit , no reddness or open areas. good color. states strarting to have tingly fingers. no pealing, redness or open areas. nails normal
[2023-09-23] MEDS: PEMBROLIZUMAB 200 MG, TUBING PRIMARY 1 EACH, In-line 0.2 micron filter set 1 EACH in 0.... 216 MG IVPB (10:02)
[2023-09-23] MEDS: 0.9 % SODIUM CHLORIDE 250 ml IV (10:37)
[2023-09-23] MEDS: dexAMETHasone 20 MG in 0.9 % SODIUM CHLORIDE 100 ml 100 ML 408 MG IVPB (10:37)
[2023-09-23] MEDS: PALONOSETRON 0.25 MG/5 ML inj IV (10:37)
[2023-09-23] MEDS: SODIUM CHLORIDE 0.9 % (FLUSH) 10 ML SYRINGE IVF ×2 (10:38→13:27)
[2023-09-23] MEDS: HEPARIN 500 UNIT/5 ML SYRINGE IVF ×2 (10:38→13:27)
[2023-09-23] MEDS: FAMOTIDINE 20 MG, diphenhydrAMINE 25 MG in 0.9 % SODIUM CHLORIDE 100 ml 100 ML 307.5 MG IVPB (10:59)
[2023-09-23] MEDS: TUBING SECONDARY IVPB (12:45)
[2023-09-23] MEDS: SODIUM CHLORIDE 0.9% IVPB (12:45)
[2023-09-23] MEDS: CARBOPLATIN IVPB (12:45)
[2023-09-24] MEDS: FILGRASTIM-AAFI 480 MCG/0.8 ML SYRINGE SUBCUT (14:24)
[2023-09-24 14:37] VITALS: BP 121/74; PULSE 77; RESP 16; TEMP 36.9; O2SAT 98
[2023-09-25 10:04] LABS: Cortisol, Serum 9.6 ug/dL
== END 2023-09-24 23:59 | disposition home or self-care (01) ==
LOC: CCIC 14:00
PROVIDERS: Internal Medicine Hematology & Oncology; PCP Family Medicine; Referring Provider Family Medicine; Visit Provider Clinical Nurse Specialist
DX: C50.911 Malignant neoplasm of unspecified site of right female breast (principal); Z17.1 Estrogen receptor negative status [ER-]; D70.9 Neutropenia, unspecified; T45.1X5A Adverse effect of antineoplastic and immunosuppressive drugs, initial encounter
CPT/HCPCS: 36415; 36591; 80053; 82533; 82670; 83001; 83002; 84436; 84443; 84480; 84482; 85025; 86704; 86803; 87340; 96372; 96376; 96377; 96411; 96413; 96415; 96417; 99202; 99205; 99211; 99212; 99213; 99215; J2506; J9000; J9070; J1100; J1200; J1447; J1453; J1642; J2469; J7050; J9045; J9267; J9271; Q5101; Q5110; S0028

== ENCOUNTER 2023-11-05 19:39 | Emergency (ER) | payer OTHER, SELFPAY ==
--- NOTE | 2023-11-05 20:18 | CRLHL7_ITS ---
For Patients: As a result of the Century Cures Act, medical imaging exams and procedure reports are released immediately into your electronic medical record. You may view this report before your referring provider. If you have questions, please contact your health care provider. INDICATION: Shortness of breath. TECHNIQUE: CT Pulmonary Angiogram examination was performed after the administration of 95 mL Isovue 370 contrast intravenously. COMPARISON: CTA chest 08/19/2023. FINDINGS: Lower neck: Visualized thyroid is unremarkable. Cardiovascular: Contrast opacification of the pulmonary arterial tree is adequate. Thoracic aorta is normal in caliber. Pulmonary artery is normal in caliber. No pulmonary embolus. Mild atherosclerotic calcifications of the aortic arch. Heart size is normal. No right heart strain. No significant coronary arterial calcifications. Port-A-Cath with tip terminating in the right atrium. Lungs: Linear bandlike opacifications of the lung bases likely due to subsegmental atelectasis and/or scarring. No focal consolidation. Dependent atelectasis. Airways: Patent. Pleura: No pleural effusions or pneumothorax. Lymph nodes: No mediastinal, hilar, or axillary adenopathy. Chest wall: Bilateral breast prosthesis, with air-fluid levels, question breast implant rupture. Upper abdomen: No reflux of contrast material in the IVC. Bones: No acute osseous abnormalities. IMPRESSION: 1. No pulmonary embolus. No CT evidence of right heart strain. 2. Bilateral breast prostheses with air-fluid levels, of uncertain clinical significance. Query possible breast implant rupture. Please note that all CT scans at this facility use dose modulation, iterative reconstruction, and/or weight-based dosing when appropriate to reduce radiation dose to as low as reasonably achievable. Dictated by Aaron Khoury MD @ 11/05/2023 9:51:46 PM (Electronically Signed)
[2023-11-05 20:24] VITALS: BP 121/79; PULSE 80; RESP 18; TEMP 36.8; O2SAT 96; BMI 30.7
--- NOTE | 2023-11-05 20:31 | ED.CHESTPAIN ---
HPI - Chest Pain General Time Seen by Provider: 20:31 Date Seen: 11/05/23 Chief Complaint: Chest Pain Stated Complaint: possible blood clot Time Seen by Provider: 11/05/23 20:22 Source: patient, RN notes reviewed and old records reviewed Mode of arrival: ambulatory Limitations: no limitations History of Present Illness HPI narrative: Annetta is a very pleasant 52-year-old female who is status post bilateral mastectomy with spacers last week who comes to the emergency room for evaluation regarding chest discomfort and shortness of breath when lying flat. Patient notes that her surgery at [place] did not have any complications that she knows of. On Saturday night November 03 she noticed that when she would lie flat she had chest pain in the mid aspect of her chest and difficulty breathing. When she is upright she rates the discomfort 3/10 and really has no shortness of breath. She is not experience fever or chills that she knows of. Her states that her temp was elevated at 99.6 1 day over the weekend but Annetta blames this on using hydroxyzine. She needs she has discontinued hydroxyzine she has not had any fever. She notes no nausea or vomiting. She denies diarrhea. She has not had a cough or cold-like symptoms. Patient was initially seen at urgent care at which time they noted an elevated D-dimer and the center to the emergency room for CT with worries regarding possible blood clots. Patient also notes that she does not feel like her drainage tubes are working. On the left there is fluid noted in the 2 but the tube is not feeling up. Patient's feels that there is a clot in the proximal to on the right. Due to incredibly high volume in the ED tonight patient CT was and labs were ordered by nursing staff with my permission. Related Data Home Medications Medication Instructions Recorded Confirmed acetaminophen 500 mg tablet 1,000 mg PO Q6H PRN 03/28/23 11/05/23 (Tylenol Extra Strength) valacyclovir 1 gram tablet 2,000 mg PO ONCE PRN 03/28/23 11/05/23 albuterol sulfate 90 mcg/actuation 2 puff inhalation Q4-6H PRN 08/13/23 11/05/23 aerosol inhaler wheezing ketoconazole 2 % shampoo 1 applic topical 2XW 09/09/23 11/05/23 loratadine 10 mg tablet (Claritin) 10 mg PO QDAY 09/09/23 11/05/23 cephalexin 500 mg capsule 500 mg PO TID 11/05/23 11/05/23 Previous Rx's Medication Instructions Recorded ondansetron 4 mg disintegrating 4 mg PO Q8H PRN nausea and 03/28/23 tablet vomiting #60 tabs prochlorperazine maleate 10 mg 10 mg PO Q8H PRN nausea and 03/28/23 tablet (Compazine) vomiting #60 tabs lidocaine-prilocaine 2.5 %-2.5 % 1 applic topical .prior to port 08/12/23 topical cream access PRN pain #30 grams Allergies Allergy/AdvReac Type Severity Reaction Status Date / Time Penicillins Allergy Severe Difficulty Verified 11/05/23 20:59 Breathing gabapentin Allergy Mild Rash Verified 11/05/23 20:59 blood specific Allergy Severe Rash Uncoded 11/05/23 20:59 Review of Systems Status of ROS Reports: 10 or more systems reviewed and unremarkable except as noted in History and below Const Denies: fever or chills ENMT Denies: neck pain, throat swelling, difficulty swallowing, ear pain, nasal discharge or nasal congestion Cardio Reports: chest pain and shortness of breath when lying down; Denies: palpitations, swelling of feet/ankles or lightheadedness Resp Denies: cough or wheezing GI Denies: abdominal pain, nausea, vomiting, diarrhea or difficulty swallowing Musculo Denies: neck pain Allergy/Immuno Denies: throat swelling or wheezing PFSH PFSH Medical History Bronchitis ?J40 - Bronchitis, not specified as acute or chronic (ICD-10) Lumbago with sciatica ?M54.40 - Lumbago with sciatica, unspecified side (ICD-10) Hypothyroidism ?E03.9 - Hypothyroidism, unspecified (ICD-10) Surgical History History of colonoscopy (~10/26/19) ?Z98.890 - Other specified postprocedural states (ICD-10) History of lumbar discectomy (~10/2018) ?Z98.890 - Other specified postprocedural states (ICD-10) History of bilateral salpingectomy (~10/22/13) ?Z90.79 - Acquired absence of other genital organ(s) (ICD-10) History of hysterectomy (10/22/13) ?Z90.710 - Acquired absence of both cervix and uterus (ICD-10) Family History Father Heart disease Mother Liver cancer Paternal Grandmother Breast cancer Uncle Pancreatic cancer Social History What is your current living situation?: I presently have a place to live In the past 12 months, utilities in danger of being shut off: no In past 12 months, lack of transportation kept you from medical appts, meetings, work, or getting things needed for daily living: no In the past 12 mos, have been you worried that your food would run out before you had money to buy more?: never true Highest level of school completed/degree received: 12th grade, no diploma Smoking Status: Never smoker Do you use any of these nicotine containing products: None How often do you have a drink containing alcohol: 2-3 times a week Alcohol type: wine How many standard drinks containing alcohol do you have on a typical day: 1 or 2 How often do you have six or more drinks on one occasion: Monthly AUDIT-C Alcohol total score: 5 Non-prescribed substance use: denies use Caffeine: No How often does anyone, including family, friends and others, physically hurt you: never How often does anyone, including family, friends and others, insult or talk down to you: never How often does anyone, including family, friends and others, threaten you with harm: never How often does anyone, including family, friends and others, scream or curse at you: never service: No Exam Narrative Exam Narrative: Patient is alert and oriented. Very pleasant well-spoken woman. No acute distress. Color is good. GCS of 15. Heart with a regular rate and rhythm. Lungs are clear bilaterally. No erythema noted on the chest wall. On the right there does appear to be a light pink clot noted in the proximal tube. I do note that the surgical bandages in place but I do not see any unusual drainage on the gauze nor any erythema around the bandage. On the right there is dark maroon fluid that is draining. There is not an excessive amount. I do try to milk both and then unable to increase drainage. Palpation of the abdomen does not show any tenderness over the gallbladder area. Lower extremities do not show edema. Const Vital Signs, click to edit/add: Vital Signs - 24 hr 11/05/23 20:24 Temperature 98.3 F Pulse Rate [Pulse Oximeter] 80 Respiratory Rate 18 Blood Pressure [Left Upper Arm] 121/79 Pulse Oximetry 96 Oxygen Delivery Method Room Air Documenting provider has reviewed patient's vital signs: yes Course Course ED Course: At this time differential diagnosis includes but is not limited to acute coronary syndrome, PE, pneumonia, aspiration pneumonia, GERD, biliary colic. CBC, comprehensive panel, CRP, troponin and CT of the chest have been ordered. Reevaluation(s) Reevaluation #1: CT of the chest is negative for PE. Vital Signs Vital signs: Initial Vital Signs Temperature 98.3 F 11/05/23 20:24 Temperature Source Temporal Artery Scan 11/05/23 20:24 Pulse Rate 80 11/05/23 20:24 Respiratory Rate 18 11/05/23 20:24 Blood Pressure 121/79 11/05/23 20:24 Blood Pressure Mean 93 11/05/23 20:24 Blood Pressure Position Sitting 11/05/23 20:24 Pulse Oximetry 96 11/05/23 20:24 Oxygen Delivery Method Room Air 11/05/23 20:24 Vital Signs Temperature 98.3 F 11/05/23 20:24 Pulse Rate 80 11/05/23 20:24 Respiratory Rate 18 11/05/23 20:24 Blood Pressure 121/79 11/05/23 20:24 Pulse Oximetry 96 11/05/23 20:24 Oxygen Delivery Method Room Air 11/05/23 20:24 Temperature 98.3 F 11/05/23 20:24 Pulse Rate 80 11/05/23 20:24 Respiratory Rate 18 11/05/23 20:24 Blood Pressure 121/79 11/05/23 20:24 Pulse Oximetry 96 11/05/23 20:24 Oxygen Delivery Method Room Air 11/05/23 20:24 Medications Administered Medications: Discontinued Medications Generic Name Dose Route Start Last Admin Trade Name Freq PRN Reason Stop Dose Admin Heparin Sodium (Porcine) 500 unit 11/05/23 22:46 11/05/23 22:48 Heparin 500 Unit/5 Ml Syringe IVF 11/05/23 22:47 500 unit ONCE ONE Administration MDM - Chest Pain MDM Narrative Medical decision making narrative: 1. Atypical chest pain-I think that the chest discomfort is likely secondary to recent surgery now with spacers. I suspect that when patient tries to lay flat this increases stress on the chest wall anteriorly and increases her discomfort. At this time there is no evidence of pneumonia, PE, pneumothorax. Recommend sleeping well sitting up. Pain medications as needed. Seek medical attention for worsening symptoms. 2. Elevated liver function tests-it appears that these have been gradually increasing over time. Patient has no pain over the gallbladder tonight. Would recommend repeat of liver function test with primary MD. Consider gallbladder ultrasound if continued elevation. 3. Disposition-home at this time. Reassurance that we do not have any evidence that this is a life-threatening discomfort at this time. However, for worsening discomfort would have her return for further evaluation. Medical Records Data Attestation: I reviewed the patient's medical records. Lab Data Attestation: I reviewed the patient's lab results. Labs: Lab Results 11/05/23 11/05/23 11/05/23 Range/Units 20:19 20:22 22:21 WBC 3.43 L (4.50-11.00) K/uL RBC 3.31 L (4.00-5.20) m/uL Hgb 10.9 L (12.0-16.0) gm/dL Hct 32.7 L (33.0-51.0) % MCV 99 (80-100) fL MCH 33 (26-34) pg MCHC 33 (32-36) gm/dL RDW Coeff of Ludivina 14.0 (11.5-15.5) % Plt Count 154 (140-440) K/uL Neut % (Auto) 53.7 (42.0-72.0) % Lymph % (Auto) 32.9 (20-44) % [place] % (Auto) 9.9 (0.0-11.0) % Eos % (Auto) 3.2 (0.0-7.0) % Baso % (Auto) 0.3 (0.0-3.0) % Neut # (Auto) 1.80 (1.7-7.0) K/uL Lymph # (Auto) 1.10 (0.90-2.90) K/uL [place] # (Auto) 0.30 (0.00-0.90) K/UL Eos # (Auto) 0.10 (0.00-0.50) K/uL Baso # (Auto) 0.00 (0.00-0.30) K/uL Abs Immat Gran (auto) 0.00 (0.00-0.30) K/uL Imm/Tot Granulo (auto) 0.0 % Sodium 137 (135-149) mmol/L Potassium 3.6 (3.6-5.1) mmol/L Chloride 105 (96-114) mmol/L Carbon Dioxide 25 (20-32) mmol/L Anion Gap 7 (7-15) mEq/L BUN 20 (7-30) mg/dL Creatinine 0.8 (0.5-1.5) mg/dL Estimated Creat Clear 75.26 Estimated GFR 88 ml/min Glucose 134 H (60-115) mg/dL Calcium 9.1 (8.4-10.6) mg/dL Total Bilirubin 0.7 (0.1-1.5) mg/dL AST 61 H (12-35) U/L ALT 95 H (4-35) U/L Alkaline Phosphatase 77 (40-150) U/L C-Reactive Protein 2.0 H (0.5-1.0) mg/dL NT-Pro-B Natriuret Pep 110 pg/mL Total Protein 6.6 (6.0-8.3) g/dL Albumin 4.3 (3.3-5.0) g/dL POC Creatinine 0.9 (0.6-1.3) mg/dl POC Troponin I 0.01 0.02 (0.01-0.04) ng/ml Imaging Data CT scan - chest: Attestation: I have reviewed the pertinent imaging results. Radiologist's impression: Visualized thyroid is unremarkable. Cardiovascular: Contrast opacification of the pulmonary arterial tree is adequate. Thoracic aorta is normal in caliber. Pulmonary artery is normal in caliber. No pulmonary embolus. Mild atherosclerotic calcifications of the aortic arch. Heart size is normal. No right heart strain. No significant coronary arterial calcifications. Port-A-Cath with tip terminating in the right atrium. Lungs: Linear bandlike opacifications of the lung bases likely due to subsegmental atelectasis and/or scarring. No focal consolidation. Dependent atelectasis. Airways: Patent. Pleura: No pleural effusions or pneumothorax. Lymph nodes: No mediastinal, hilar, or axillary adenopathy. Chest wall: Bilateral breast prosthesis, with air-fluid levels, question breast implant rupture. Upper abdomen: No reflux of contrast material in the IVC. Bones: No acute osseous abnormalities. IMPRESSION: 1. No pulmonary embolus. No CT evidence of right heart strain. 2. Bilateral breast prostheses with air-fluid levels, of uncertain clinical significance. Query possible breast implant rupture. ECG Data Attestation: I personally reviewed and interpreted this ECG as follows: ECG interpretation date: 11/05/23 Interpretation: By my read sinus rhythm at a rate of 73. I do not note any ST year Q-wave abnormalities. QT and PA intervals within normal limits. Discharge Plan Discharge Clinical Impression: Shortness of breath at rest Status post mastectomy Qualifiers: Laterality: bilateral Qualified Code(s): Z90.13 - Acquired absence of bilateral breasts and nipples Patient Disposition: Home, Self-Care Condition: Unchanged Additional Instructions: At this time your EKG and blood test called troponin are negative for any findings of a heart attack. Your CT was negative for pneumonia as well as pulmonary embolism or blood clots in the lungs. Suggest sleeping on pillows and not lying flat at this time. You may want to try Tums if you feel you experiencing any heartburn. I would suggest follow-up with your surgeon in regards to the surgical drain issues. I would also suggest follow-up with repeat liver function tests with your primary MD to ensure they are stable and not rising. Return to the emergency room for worsening symptoms including fever, worsening discomfort and as needed. Prescriptions: No Action lidocaine-prilocaine 2.5-2.5 % cream 1 applic topical .prior to port access PRN (Reason: pain) Qty: 30 1RF Rx Instructions: apply to port 45 minutes prior to access. Cover with non adhesive plastic wrap. valacyclovir 1 gram tablet 2,000 mg PO ONCE PRN acetaminophen [Tylenol Extra Strength] 500 mg tablet 1,000 mg PO Q6H PRN prochlorperazine maleate [Compazine] 10 mg tablet 10 mg PO Q8H PRN (Reason: nausea and vomiting) Qty: 60 0RF ondansetron 4 mg tablet,disintegrating 4 mg PO Q8H PRN (Reason: nausea and vomiting) Qty: 60 0RF loratadine [Claritin] 10 mg tablet 10 mg PO QDAY ketoconazole 2 % shampoo 1 applic topical 2XW cephalexin 500 mg capsule 500 mg PO TID albuterol sulfate 90 mcg/actuation HFA aerosol inhaler 2 puff inhalation Q4-6H PRN (Reason: wheezing) Follow Up/Referrals: Ricci Brewer MD [Primary Care Provider] - Stand Alone Forms: [facility] Info Instructions
[2023-11-05 20:57] LABS: Troponin, Point-of-Care* 0.01 ng/ml (0.01-0.04)
[2023-11-05 21:00] VITALS: BP 131/82; PULSE 70; RESP 16; O2SAT 97
[2023-11-05 21:00] LABS: Creatinine, Point-of-Care* 0.9 mg/dl (0.6-1.3)
[2023-11-05 21:03] LABS: Basophils Percent Auto 0.3 % (0.0-3.0); Eosinophils Percent Auto 3.2 % (0.0-7.0); Hematocrit 32.7 % (33.0-51.0); Hemoglobin* 10.9 gm/dL (12.0-16.0); Lymphocytes Percent Auto 32.9 % (20-44); Mean Corpuscular HGB Conc 33 gm/dL (32-36); Mean Corpuscular Hemoglobin 33 pg (26-34); Mean Corpuscular Volume 99 fL (80-100); Monocytes Percent Auto 9.9 % (0.0-11.0); Neutrophils Percent Auto 53.7 % (42.0-72.0); Platelet Count* 154 K/uL (140-440); Red Blood Count 3.31 m/uL (4.00-5.20); White Blood Count* 3.43 K/uL (4.50-11.00)
[2023-11-05 21:20] LABS: Albumin* 4.3 g/dL (3.3-5.0); Chloride* 105 mmol/L (96-114); Sodium* 137 mmol/L (135-149)
[2023-11-05 21:21] LABS: Potassium* 3.6 mmol/L (3.6-5.1); Slide Review Reflex No
[2023-11-05 21:23] LABS: Creatinine* 0.8 mg/dL (0.5-1.5); Est. Creatinine Clearance* 75.26; Estimated Glomerular Filt Rate 88 ml/min
[2023-11-05 21:24] LABS: Alanine Aminotransferase* 95 U/L (4-35); Alkaline Phosphatase* 77 U/L (40-150); Anion Gap 7 mEq/L (7-15); Aspartate Amino Transferase* 61 U/L (12-35); Bilirubin Total* 0.7 mg/dL (0.1-1.5); Blood Urea Nitrogen* 20 mg/dL (7-30); Carbon Dioxide* 25 mmol/L (20-32); Glucose* 134 mg/dL (60-115); Total Protein* 6.6 g/dL (6.0-8.3)
[2023-11-05 21:25] LABS: Calcium* 9.1 mg/dL (8.4-10.6)
[2023-11-05 21:30] VITALS: BP 134/87; PULSE 66; RESP 16; O2SAT 98
[2023-11-05 21:44] LABS: NT Pro B Type NatriureticPept* 110 pg/mL
[2023-11-05 22:00] VITALS: BP 139/87; PULSE 67; RESP 18; O2SAT 97
[2023-11-05 22:45] LABS: Troponin, Point-of-Care* 0.02 ng/ml (0.01-0.04)
[2023-11-05] MEDS: HEPARIN 500 UNIT/5 ML SYRINGE IVF (22:48)
== END 2023-11-05 23:00 | disposition home or self-care (01) ==
PROVIDERS: Emergency Provider Family Medicine; PCP Family Medicine
DX: R06.02 Shortness of breath (principal); Z90.13 Acquired absence of bilateral breasts and nipples
CPT/HCPCS: 36415; 71275; 80048; 80053; 82565; 83880; 84484; 85025; 86140; 93005; 96374; 99284; 99285; J1642; Q9967

== ENCOUNTER 2024-03-23 08:45 | Outpatient (RCR) | payer OTHER, SELFPAY ==
[2023-09-30 08:41] LABS: Albumin* 3.8 g/dL (3.3-5.0); Chloride* 105 mmol/L (96-114); Potassium* 3.7 mmol/L (3.6-5.1); Sodium* 137 mmol/L (135-149)
[2023-09-30 08:43] LABS: Anion Gap 6 mEq/L (7-15); Bilirubin Total* 0.6 mg/dL (0.1-1.5); Carbon Dioxide* 26 mmol/L (20-32); Creatinine* 0.8 mg/dL (0.5-1.5); Estimated Glomerular Filt Rate 88 ml/min
[2023-09-30 08:44] LABS: Alanine Aminotransferase* 85 U/L (4-35); Alkaline Phosphatase* 63 U/L (40-150); Aspartate Amino Transferase* 52 U/L (12-35); Blood Urea Nitrogen* 15 mg/dL (7-30); Glucose* 123 mg/dL (60-115); Total Protein* 6.1 g/dL (6.0-8.3)
[2023-09-30 08:48] LABS: Basophils Percent Auto 0.3 % (0.0-3.0); Eosinophils Percent Auto 1.4 % (0.0-7.0); Hematocrit 29.8 % (33.0-51.0); Hemoglobin* 9.9 gm/dL (12.0-16.0); Immature Granulocytes Pct Auto 1.7 %; Lymphocytes Percent Auto 29.1 % (20-44); Mean Corpuscular HGB Conc 33 gm/dL (32-36); Mean Corpuscular Hemoglobin 33 pg (26-34); Mean Corpuscular Volume 99 fL (80-100); Monocytes Percent Auto 13.8 % (0.0-11.0); Neutrophils Percent Auto 53.7 % (42.0-72.0); Platelet Count* 132 K/uL (140-440); RDW Coefficient of Variation % 14.8 % (11.5-15.5); Red Blood Count 3.02 m/uL (4.00-5.20); White Blood Count* 2.89 K/uL (4.50-11.00)
[2023-09-30 08:49] LABS: Slide Review Reflex No
[2023-09-30] MEDS: PALONOSETRON 0.25 MG/5 ML inj IV (09:51)
[2023-09-30] MEDS: dexAMETHasone 20 MG in 0.9 % SODIUM CHLORIDE 100 ml 100 ML 408 MG IVPB (09:51)
[2023-09-30] MEDS: FAMOTIDINE 20 MG, diphenhydrAMINE 25 MG in 0.9 % SODIUM CHLORIDE 100 ml 100 ML 309 MG IVPB (10:13)
[2023-09-30] MEDS: 0.9 % SODIUM CHLORIDE 250 ml IV (10:13)
[2023-09-30] MEDS: SODIUM CHLORIDE 0.9 % (FLUSH) 10 ML SYRINGE IVF ×2 (10:13→12:33)
[2023-09-30] MEDS: TUBING SECONDARY IVPB (11:42)
[2023-09-30] MEDS: CARBOPLATIN IVPB (11:42)
[2023-09-30] MEDS: SODIUM CHLORIDE 0.9% IVPB (11:42)
[2023-09-30] MEDS: HEPARIN 500 UNIT/5 ML SYRINGE IVF (12:33)
[2023-10-01 14:07] VITALS: BP 121/64; PULSE 78; RESP 16; TEMP 36.9; O2SAT 98
[2023-10-01] MEDS: FILGRASTIM-AAFI 480 MCG/0.8 ML SYRINGE SUBCUT (14:12)
--- NOTE | 2023-10-04 10:50 | ONC.NURNOTE ---
Pt called this morning reporting worsening neuropathy. Previously she has had burning and tingling in her fingers. Over the course of this week she is additionally developing burning/tingling/buzzing on her toes, balls of feet and now full bottoms of feet progressively. Per Dr. Fuentes's note, recommended trying Gabapentin if neuropathy worsens; Shelbie Whiting APRN prescribed Gabapentin 100mg TID with recommendation of using Lidocaine 4% cream on her toes sparingly if neuropathy severe. Reviewed with pt along with side effects of dizziness, palpatations, etc to watch for; she is agreeable to this plan. BNN to call pt Mon 10/07 to f/u Gabapentin dosing and schedule.
[2023-11-25] MEDS: HEPARIN 500 UNIT/5 ML SYRINGE IVF (10:18)
[2023-11-25] MEDS: SODIUM CHLORIDE 0.9 % (FLUSH) 10 ML SYRINGE IVF (10:18)
[2023-11-25 10:31] LABS: Basophils Percent Auto 0.3 % (0.0-3.0); Eosinophils Percent Auto 4.9 % (0.0-7.0); Hematocrit 36.5 % (33.0-51.0); Hemoglobin* 12.3 gm/dL (12.0-16.0); Lymphocytes Percent Auto 31.3 % (20-44); Mean Corpuscular HGB Conc 34 gm/dL (32-36); Mean Corpuscular Hemoglobin 32 pg (26-34); Mean Corpuscular Volume 96 fL (80-100); Monocytes Percent Auto 11.7 % (0.0-11.0); Neutrophils Percent Auto 51.8 % (42.0-72.0); Platelet Count* 150 K/uL (140-440); RDW Coefficient of Variation % 11.8 % (11.5-15.5); Red Blood Count 3.82 m/uL (4.00-5.20); White Blood Count* 3.84 K/uL (4.50-11.00)
[2023-11-25 10:32] LABS: Slide Review Reflex No
[2023-11-25 10:45] LABS: Chloride* 105 mmol/L (96-114)
[2023-11-25 10:46] LABS: Albumin* 4.1 g/dL (3.3-5.0); Potassium* 4.2 mmol/L (3.6-5.1); Sodium* 137 mmol/L (135-149)
[2023-11-25 10:48] LABS: Creatinine* 0.8 mg/dL (0.5-1.5); Estimated Glomerular Filt Rate 87 ml/min
[2023-11-25 10:49] LABS: Alanine Aminotransferase* 71 U/L (4-35); Alkaline Phosphatase* 56 U/L (40-150); Anion Gap 6 mEq/L (7-15); Aspartate Amino Transferase* 47 U/L (12-35); Bilirubin Total* 0.5 mg/dL (0.1-1.5); Blood Urea Nitrogen* 15 mg/dL (7-30); Calcium* 9.5 mg/dL (8.4-10.6); Carbon Dioxide* 26 mmol/L (20-32); Glucose* 94 mg/dL (60-115); Total Protein* 6.6 g/dL (6.0-8.3)
[2023-11-26 23:20] LABS: Cortisol, Serum 7.5 ug/dL
--- NOTE | 2023-11-28 08:08 | URNOTE ---
Pembrolizumab ([id number]) has been approved by [facility]. 11/25/2023-05/25/2024
[2023-12-02] MEDS: 0.9 % SODIUM CHLORIDE 250 ml IV (10:35)
[2023-12-02] MEDS: PEMBROLIZUMAB 200 MG, TUBING PRIMARY 1 EACH, In-line 0.2 micron filter set 1 EACH in 0.... 216 MG IVPB (10:35)
[2023-12-02] MEDS: SODIUM CHLORIDE 0.9 % (FLUSH) 10 ML SYRINGE IVF ×2 (10:35→11:06)
[2023-12-02] MEDS: HEPARIN 500 UNIT/5 ML SYRINGE IVF (11:06)
--- NOTE | 2023-12-05 13:43 | ONC.NURNOTE ---
JOANIE for Capecitabine approved 12/04/2023 to 12/03/2024. RX faxed to [facility], they will call patient to arrange shipment. Patient verbalizes understanding that she is not to start the medication until she is directed at her 12/23 follow up appointment.
[2023-12-19 14:23] LABS: Basophils Absolute Auto 0.01 K/uL (0.00-0.30); Basophils Percent Auto 0.2 % (0.0-3.0); Eosinophils Absolute Auto 0.18 K/uL (0.00-0.50); Eosinophils Percent Auto 3.8 % (0.0-7.0); Hematocrit 38.2 % (33.0-51.0); Lymphocytes Absolute Auto 1.29 K/uL (0.90-2.90); Lymphocytes Percent Auto 27.3 % (20-44); Mean Corpuscular HGB Conc 34 gm/dL (32-36); Mean Corpuscular Hemoglobin 31 pg (26-34); Mean Corpuscular Volume 92 fL (80-100); Monocytes Percent Auto 8.9 % (0.0-11.0); Neutrophils Absolute Auto 2.82 K/uL (1.7-7.0); Neutrophils Percent Auto 59.8 % (42.0-72.0); Platelet Count* 145 K/uL (140-440); RDW Coefficient of Variation % 11.3 % (11.5-15.5); Red Blood Count 4.15 m/uL (4.00-5.20); White Blood Count* 4.72 K/uL (4.50-11.00)
[2023-12-19 14:25] LABS: Slide Review Reflex No
[2023-12-19 14:59] LABS: Albumin* 4.4 g/dL (3.3-5.0); Chloride* 102 mmol/L (96-114); Sodium* 134 mmol/L (135-149)
[2023-12-19 15:00] LABS: Potassium* 3.9 mmol/L (3.6-5.1)
[2023-12-19] MEDS: SODIUM CHLORIDE 0.9 % (FLUSH) 10 ML SYRINGE IVF (15:00)
[2023-12-19] MEDS: HEPARIN 500 UNIT/5 ML SYRINGE IVF (15:00)
[2023-12-19 15:02] LABS: Alanine Aminotransferase* 42 U/L (4-35); Anion Gap 8 mEq/L (7-15); Aspartate Amino Transferase* 38 U/L (12-35); Bilirubin Total* 1.1 mg/dL (0.1-1.5); Blood Urea Nitrogen* 16 mg/dL (7-30); Carbon Dioxide* 24 mmol/L (20-32); Creatinine* 0.9 mg/dL (0.5-1.5); Estimated Glomerular Filt Rate 76 ml/min; Total Protein* 6.8 g/dL (6.0-8.3)
[2023-12-19 15:03] LABS: Calcium* 9.5 mg/dL (8.4-10.6); Glucose* 86 mg/dL (60-115)
[2023-12-19 15:18] LABS: Alkaline Phosphatase* 62 U/L (40-150)
[2023-12-23] MEDS: 0.9 % SODIUM CHLORIDE 250 ml IV (11:35)
[2023-12-23] MEDS: SODIUM CHLORIDE 0.9 % (FLUSH) 10 ML SYRINGE IVF ×2 (11:35→12:10)
[2023-12-23] MEDS: PEMBROLIZUMAB 200 MG, TUBING PRIMARY 1 EACH, In-line 0.2 micron filter set 1 EACH in 0.... 216 MG IVPB (11:35)
[2023-12-23] MEDS: HEPARIN 500 UNIT/5 ML SYRINGE IVF (12:10)
--- NOTE | 2024-01-06 09:19 | ONC.NURNOTE ---
Call to patient to see how she is tolerating Capecitabine. Patient denies any side effects, questions or concerns.
--- NOTE | 2024-01-08 13:55 | ONC.NURNOTE ---
Patient contacted N to notify us that she had been taking the wrong dose of Capecitabine. She started on 12/31 and was only taking 1000mg BID. I discussed with Dr. Fuentes, patient was instructed to increase to 2000mg BID starting with her dose this evening and continue until 01/12. She will then have a week off and will follow up on 01/19 to reassess for cycle #2.
[2024-01-20] MEDS: HEPARIN 500 UNIT/5 ML SYRINGE IVF (10:24)
[2024-01-20] MEDS: SODIUM CHLORIDE 0.9 % (FLUSH) 10 ML SYRINGE IVF (10:24)
[2024-01-20 10:27] LABS: Eosinophils Percent Auto 3.6 % (0.0-7.0); Hematocrit 37.9 % (33.0-51.0); Hemoglobin* 13.1 gm/dL (12.0-16.0); Lymphocytes Percent Auto 30.9 % (20-44); Mean Corpuscular HGB Conc 35 gm/dL (32-36); Mean Corpuscular Hemoglobin 32 pg (26-34); Mean Corpuscular Volume 92 fL (80-100); Neutrophils Percent Auto 55.9 % (42.0-72.0); Platelet Count* 134 K/uL (140-440); RDW Coefficient of Variation % 13.3 % (11.5-15.5); White Blood Count* 3.66 K/uL (4.50-11.00)
[2024-01-20 10:28] LABS: Basophils Percent Auto 0.3 % (0.0-3.0); Immature Granulocytes Pct Auto 0.3 %
[2024-01-20 10:45] LABS: Albumin* 3.9 g/dL (3.3-5.0); Chloride* 106 mmol/L (96-114)
[2024-01-20 10:46] LABS: Potassium* 3.8 mmol/L (3.6-5.1); Sodium* 136 mmol/L (135-149)
[2024-01-20 10:48] LABS: Alkaline Phosphatase* 58 U/L (40-150); Anion Gap 6 mEq/L (7-15); Aspartate Amino Transferase* 67 U/L (12-35); Bilirubin Total* 0.7 mg/dL (0.1-1.5); Blood Urea Nitrogen* 14 mg/dL (7-30); Carbon Dioxide* 24 mmol/L (20-32); Creatinine* 0.8 mg/dL (0.5-1.5); Estimated Glomerular Filt Rate 87 ml/min; Total Protein* 6.3 g/dL (6.0-8.3)
[2024-01-20 10:49] LABS: Alanine Aminotransferase* 73 U/L (4-35); Glucose* 121 mg/dL (60-115)
[2024-01-20 11:09] LABS: Slide Review Reflex No
[2024-01-20] MEDS: PEMBROLIZUMAB 200 MG, TUBING PRIMARY 1 EACH, In-line 0.2 micron filter set 1 EACH in 0.... 216 MG IVPB (12:21)
[2024-02-10 12:59] LABS: Basophils Percent Auto 0.2 % (0.0-3.0); Eosinophils Percent Auto 3.4 % (0.0-7.0); Hematocrit 37.2 % (33.0-51.0); Hemoglobin* 12.6 gm/dL (12.0-16.0); Lymphocytes Percent Auto 27.6 % (20-44); Mean Corpuscular HGB Conc 34 gm/dL (32-36); Mean Corpuscular Hemoglobin 32 pg (26-34); Mean Corpuscular Volume 95 fL (80-100); Monocytes Percent Auto 8.7 % (0.0-11.0); Neutrophils Percent Auto 60.1 % (42.0-72.0); Platelet Count* 132 K/uL (140-440); RDW Coefficient of Variation % 15.9 % (11.5-15.5); Red Blood Count 3.91 m/uL (4.00-5.20); White Blood Count* 4.38 K/uL (4.50-11.00)
[2024-02-10 13:05] LABS: Slide Review Reflex No
[2024-02-10 13:18] LABS: Albumin* 4.1 g/dL (3.3-5.0); Chloride* 106 mmol/L (96-114)
[2024-02-10 13:19] LABS: Potassium* 3.7 mmol/L (3.6-5.1); Sodium* 137 mmol/L (135-149)
[2024-02-10 13:21] LABS: Alanine Aminotransferase* 27 U/L (4-35); Alkaline Phosphatase* 54 U/L (40-150); Anion Gap 9 mEq/L (7-15); Aspartate Amino Transferase* 32 U/L (12-35); Blood Urea Nitrogen* 17 mg/dL (7-30); Carbon Dioxide* 22 mmol/L (20-32); Creatinine* 0.8 mg/dL (0.5-1.5); Estimated Glomerular Filt Rate 87 ml/min; Glucose* 118 mg/dL (60-115); Total Protein* 6.1 g/dL (6.0-8.3)
[2024-02-10 13:22] LABS: Calcium* 9.3 mg/dL (8.4-10.6)
[2024-02-10] MEDS: PEMBROLIZUMAB 200 MG, TUBING PRIMARY 1 EACH, In-line 0.2 micron filter set 1 EACH in 0.... 216 MG IVPB (14:47)
[2024-02-10] MEDS: HEPARIN 500 UNIT/5 ML SYRINGE IVF (15:25)
[2024-02-10] MEDS: SODIUM CHLORIDE 0.9 % (FLUSH) 10 ML SYRINGE IVF (15:25)
[2024-03-02 09:49] LABS: Basophils Absolute Auto 0.02 K/uL (0.00-0.30); Basophils Percent Auto 0.4 % (0.0-3.0); Eosinophils Absolute Auto 0.22 K/uL (0.00-0.50); Eosinophils Percent Auto 4.9 % (0.0-7.0); Hematocrit 37.4 % (33.0-51.0); Hemoglobin* 12.5 gm/dL (12.0-16.0); Immature Granulocytes Abs Auto 0.04 K/uL (0.00-0.30); Immature Granulocytes Pct Auto 0.9 %; Lymphocytes Absolute Auto 1.24 K/uL (0.90-2.90); Lymphocytes Percent Auto 27.5 % (20-44); Mean Corpuscular HGB Conc 33 gm/dL (32-36); Mean Corpuscular Hemoglobin 32 pg (26-34); Mean Corpuscular Volume 96 fL (80-100); Monocytes Percent Auto 9.1 % (0.0-11.0); Neutrophils Absolute Auto 2.58 K/uL (1.7-7.0); Neutrophils Percent Auto 57.2 % (42.0-72.0); Platelet Count* 151 K/uL (140-440); RDW Coefficient of Variation % 14.2 % (11.5-15.5); White Blood Count* 4.51 K/uL (4.50-11.00)
[2024-03-02 09:50] LABS: Slide Review Reflex No
[2024-03-02 09:58] LABS: Albumin* 4.1 g/dL (3.3-5.0); Chloride* 105 mmol/L (96-114)
[2024-03-02 09:59] LABS: Potassium* 4.1 mmol/L (3.6-5.1); Sodium* 137 mmol/L (135-149)
[2024-03-02 10:01] LABS: Anion Gap 5 mEq/L (7-15); Aspartate Amino Transferase* 46 U/L (12-35); Bilirubin Total* 0.8 mg/dL (0.1-1.5); Carbon Dioxide* 27 mmol/L (20-32); Creatinine* 0.8 mg/dL (0.5-1.5); Estimated Glomerular Filt Rate 87 ml/min; Total Protein* 6.4 g/dL (6.0-8.3)
[2024-03-02 10:02] LABS: Alanine Aminotransferase* 62 U/L (4-35); Alkaline Phosphatase* 57 U/L (40-150); Blood Urea Nitrogen* 20 mg/dL (7-30); Glucose* 79 mg/dL (60-115)
[2024-03-02] MEDS: PEMBROLIZUMAB 200 MG, TUBING PRIMARY 1 EACH, In-line 0.2 micron filter set 1 EACH in 0.... 216 MG IVPB (11:41)
[2024-03-02] MEDS: HEPARIN 500 UNIT/5 ML SYRINGE IVF (11:45)
[2024-03-02] MEDS: 0.9 % SODIUM CHLORIDE 250 ml IV (11:45)
[2024-03-02] MEDS: SODIUM CHLORIDE 0.9 % (FLUSH) 10 ML SYRINGE IVF (11:45)
[2024-03-23 08:54] LABS: Basophils Percent Auto 0.3 % (0.0-3.0); Eosinophils Percent Auto 5.2 % (0.0-7.0); Hematocrit 36.6 % (33.0-51.0); Hemoglobin* 12.5 gm/dL (12.0-16.0); Immature Granulocytes Pct Auto 0.8 %; Mean Corpuscular HGB Conc 34 gm/dL (32-36); Mean Corpuscular Hemoglobin 33 pg (26-34); Mean Corpuscular Volume 97 fL (80-100); Monocytes Percent Auto 8.1 % (0.0-11.0); Neutrophils Percent Auto 60.6 % (42.0-72.0); Platelet Count* 127 K/uL (140-440); RDW Coefficient of Variation % 13.8 % (11.5-15.5); Red Blood Count 3.76 m/uL (4.00-5.20); White Blood Count* 3.84 K/uL (4.50-11.00)
[2024-03-23 09:03] LABS: Slide Review Reflex No
[2024-03-23 09:06] LABS: Albumin* 4.2 g/dL (3.3-5.0); Chloride* 109 mmol/L (96-114); Sodium* 138 mmol/L (135-149)
[2024-03-23 09:07] LABS: Potassium* 3.7 mmol/L (3.6-5.1)
[2024-03-23 09:09] LABS: Alkaline Phosphatase* 53 U/L (40-150); Anion Gap 4 mEq/L (7-15); Aspartate Amino Transferase* 32 U/L (12-35); Bilirubin Total* 1.2 mg/dL (0.1-1.5); Blood Urea Nitrogen* 20 mg/dL (7-30); Carbon Dioxide* 25 mmol/L (20-32); Creatinine* 0.8 mg/dL (0.5-1.5); Estimated Glomerular Filt Rate 87 ml/min; Glucose* 110 mg/dL (60-115); Total Protein* 6.6 g/dL (6.0-8.3)
[2024-03-23 09:10] LABS: Alanine Aminotransferase* 37 U/L (4-35); Calcium* 8.8 mg/dL (8.4-10.6)
[2024-03-23] MEDS: PEMBROLIZUMAB 200 MG, TUBING PRIMARY 1 EACH, In-line 0.2 micron filter set 1 EACH in 0.... 216 MG IVPB (10:51)
[2024-03-23] MEDS: SODIUM CHLORIDE 0.9 % (FLUSH) 10 ML SYRINGE IVF (11:23)
[2024-03-23] MEDS: HEPARIN 500 UNIT/5 ML SYRINGE IVF (11:23)
== END 2024-03-28 23:59 | disposition home or self-care (01) ==
LOC: CCIC 08:45
PROVIDERS: Clinical Nurse Specialist; Physician Assistant; PCP Family Medicine; Referring Provider Family Medicine; Visit Provider Internal Medicine Hematology & Oncology
DX: C50.911 Malignant neoplasm of unspecified site of right female breast (principal); Z51.12 Encounter for antineoplastic immunotherapy; Z17.1 Estrogen receptor negative status [ER-]; Z90.13 Acquired absence of bilateral breasts and nipples; G62.9 Polyneuropathy, unspecified
CPT/HCPCS: 36415; 36591; 78815; 80053; 82533; 84443; 85025; 96372; 96376; 96413; 96417; 99212; 99213; 99214; 99215; G0463; A9552; J1100; J1200; J1642; J2469; J7050; J9045; J9267; J9271; Q5110; S0028

== ENCOUNTER 2024-04-23 14:32 | Outpatient (CLI) | payer OTHER, SELFPAY ==
[2024-04-23 22:42] LABS: Bacterial Vaginosis* Negative (Negative); Candida glab/krus NOT DETECTED (No Detected); Candida species NOT DETECTED (No Detected); Trichomonas vaginalis NOT DETECTED (No Detected)
== END 2024-04-23 14:33 | disposition home or self-care (01) ==
LOC: FRMREF 14:32
PROVIDERS: PCP Family Medicine; Visit Provider Registered Nurse
DX: L29.2 Pruritus vulvae (principal)
CPT/HCPCS: 81513; 87481; 87661

== ENCOUNTER 2024-07-15 13:32 | Outpatient (CLI) | payer OTHER, SELFPAY ==
[2024-07-16 00:25] LABS: Chlamydia DNA Amplified* NOT DETECTED (No Detected); GC DNA Amplified* NOT DETECTED (No Detected)
== END 2024-07-15 13:33 | disposition home or self-care (01) ==
LOC: FRMREF 13:32
PROVIDERS: PCP Family Medicine; Visit Provider Obstetrics & Gynecology
DX: L29.2 Pruritus vulvae (principal); Z11.3 Encounter for screening for infections with a predominantly sexual mode of transmission
CPT/HCPCS: 87491; 87591

== ENCOUNTER 2024-07-30 13:18 | Outpatient (CLI) | payer OTHER, SELFPAY ==
--- NOTE | 2024-07-30 14:30 | PE_ITS ---
[facility] [address] [facility] [address] Phone:?[phone] Fax:?[phone] Referring Physician Information: Myrna Schafer PA-C [address] [facility] [address] Phone:?[phone] Fax:?[phone] Patient:Nita Lan D.O.B:?1970 Sex:?Female Phone:?[phone] [facility] MRN:?[id number] Exam Date:?07/30/2024 EXAM: PET/CT SCAN MID-ORBITS TO PROXIMAL THIGHS CLINICAL INFORMATION: Breast carcinoma. COMPARISON:?Pet CT orbits to thighs 12/19/2023 TECHNICAL INFORMATION: Spiral acquisition of data was obtained from the mid orbits to the proximal thighs with reconstruction of 3.75 mm thick images at 3.[address] data was used for attenuation correction. PET scanning was performed through the same anatomic range 53 minutes following administration of 15.53 mCi of 18-FDG delivered intravenously. The patient's glucose at the time of the injection was 94 mg/dL. PET, CT and PET/CT fusion images are interpreted using a computer viewing workstation. SUV max liver 4.0; BMI normalization method. INTERPRETATION: Head and Neck: Physiologic intracranial uptake. No adenopathy or hypermetabolic foci of the head or neck. Chest: Status post bilateral mastectomy with tissue expanders in situ. Previous hypermetabolic foci along breast director software margin are absent since prior 12/19/2023 exam. No lung nodule or infiltrate. No bronchiectasis, emphysema or fibrosis. [place], mediastinum and axilla: No pathologic adenopathy. Right-sided Port-A-Cath without apparent complication. Abdomen, Pelvis and Proximal Thighs: No focal liver lesion. No biliary duct dilatation. The gallbladder, pancreas, adrenal glands, spleen and kidneys are unremarkable. No pathologic mesenteric or retroperitoneal adenopathy. No GI tract abnormality. No pelvic mass, hernia, adenopathy or fluid collection. MUSCULOSKELETAL: No focal lesion. No hypermetabolic foci within the abdomen or pelvis. CONCLUSION: 1. Previous FDG uptake along margin of patient's bilateral breast tissue expanders identified 12/19/2023 is absent on current study. No FDG avid lesion within the chest, abdomen or pelvis at this time. No disease specific FDG abnormality is identified. Electronically signed on 07/31/2024 3:10:00 PM by Stephen Gilliland M.D.
== END 2024-07-30 13:19 | disposition home or self-care (01) ==
LOC: RAD 13:20
PROVIDERS: PCP Family Medicine; Visit Provider Physician Assistant
DX: C50.811 Malignant neoplasm of overlapping sites of right female breast (principal)
CPT/HCPCS: 78815; A9552

== ENCOUNTER 2024-08-03 13:30 | Outpatient (RCR) | payer OTHER, SELFPAY ==
--- NOTE | 2024-04-10 11:30 | ONC.NURNOTE ---
Patient called to report a 7 week history of what she believes is a vaginal yeast infection. Her primary symptoms is itching. Minimal discharge. Patient has tried OTC Monistat and it only temporarily relieves her symptoms. I encouraged patient to call her PCP but she states that her PCP retired and she has not re-established with a new provider yet. Patient has a follow up on Saturday with JOANIE Wesley. She will wait to address it until that time.
[2024-04-13 09:13] LABS: Basophils Percent Auto 0.6 % (0.0-3.0); Eosinophils Percent Auto 4.7 % (0.0-7.0); Hemoglobin* 12.8 gm/dL (12.0-16.0); Lymphocytes Percent Auto 32.3 % (20-44); Mean Corpuscular HGB Conc 34 gm/dL (32-36); Mean Corpuscular Hemoglobin 33 pg (26-34); Mean Corpuscular Volume 99 fL (80-100); Monocytes Percent Auto 9.7 % (0.0-11.0); Neutrophils Percent Auto 52.7 % (42.0-72.0); Platelet Count* 135 K/uL (140-440); RDW Coefficient of Variation % 14.3 % (11.5-15.5); Red Blood Count 3.85 m/uL (4.00-5.20); White Blood Count* 3.62 K/uL (4.50-11.00)
[2024-04-13 09:17] LABS: Slide Review Reflex No
[2024-04-13 09:23] LABS: Albumin* 4.2 g/dL (3.3-5.0)
[2024-04-13 09:24] LABS: Chloride* 108 mmol/L (96-114); Potassium* 3.7 mmol/L (3.6-5.1); Sodium* 137 mmol/L (135-149)
[2024-04-13 09:26] LABS: Anion Gap 4 mEq/L (7-15); Aspartate Amino Transferase* 33 U/L (12-35); Bilirubin Total* 1.4 mg/dL (0.1-1.5); Carbon Dioxide* 25 mmol/L (20-32); Creatinine* 0.9 mg/dL (0.5-1.5); Estimated Glomerular Filt Rate 76 ml/min
[2024-04-13 09:27] LABS: Alanine Aminotransferase* 31 U/L (4-35); Alkaline Phosphatase* 57 U/L (40-150); Blood Urea Nitrogen* 21 mg/dL (7-30); Calcium* 8.8 mg/dL (8.4-10.6); Glucose* 120 mg/dL (60-115); Total Protein* 6.4 g/dL (6.0-8.3)
[2024-04-13] MEDS: PEMBROLIZUMAB 200 MG, TUBING PRIMARY 1 EACH, In-line 0.2 micron filter set 1 EACH in 0.... 216 MG IVPB (10:51)
[2024-04-13] MEDS: SODIUM CHLORIDE 0.9 % (FLUSH) 10 ML SYRINGE IVF (11:32)
[2024-04-13] MEDS: HEPARIN 500 UNIT/5 ML SYRINGE IVF (11:32)
[2024-04-13 11:37] LABS: Bacterial Vaginosis* Negative (Negative); Candida glab/krus NOT DETECTED (No Detected); Candida species NOT DETECTED (No Detected); Trichomonas vaginalis NOT DETECTED (No Detected)
--- NOTE | 2024-04-13 15:07 | ONC.NURNOTE ---
Patient informed that JOANIE Wesley reviewed the results of her vaginal swab and it was negative. Patient to see her PCP or [facility] if she continues to have concerns related to vaginal itching/discharge. Patient verbalizes understanding.
[2024-05-04 08:38] LABS: Basophils Percent Auto 0.3 % (0.0-3.0); Eosinophils Percent Auto 5.1 % (0.0-7.0); Hematocrit 38.4 % (33.0-51.0); Hemoglobin* 13.2 gm/dL (12.0-16.0); Lymphocytes Percent Auto 32.5 % (20-44); Mean Corpuscular HGB Conc 34 gm/dL (32-36); Mean Corpuscular Hemoglobin 34 pg (26-34); Mean Corpuscular Volume 98 fL (80-100); Monocytes Percent Auto 9.6 % (0.0-11.0); Neutrophils Percent Auto 52.5 % (42.0-72.0); Platelet Count* 130 K/uL (140-440); RDW Coefficient of Variation % 13.3 % (11.5-15.5); Red Blood Count 3.92 m/uL (4.00-5.20); White Blood Count* 3.32 K/uL (4.50-11.00)
[2024-05-04 08:40] LABS: Slide Review Reflex No
[2024-05-04 08:50] LABS: Albumin* 4.4 g/dL (3.3-5.0); Chloride* 107 mmol/L (96-114); Sodium* 137 mmol/L (135-149)
[2024-05-04 08:51] LABS: Potassium* 3.8 mmol/L (3.6-5.1)
[2024-05-04 08:53] LABS: Alanine Aminotransferase* 38 U/L (4-35); Alkaline Phosphatase* 52 U/L (40-150); Anion Gap 9 mEq/L (7-15); Aspartate Amino Transferase* 32 U/L (12-35); Bilirubin Total* 0.9 mg/dL (0.1-1.5); Blood Urea Nitrogen* 14 mg/dL (7-30); Carbon Dioxide* 21 mmol/L (20-32); Creatinine* 0.8 mg/dL (0.5-1.5); Estimated Glomerular Filt Rate 87 ml/min; Glucose* 116 mg/dL (60-115)
[2024-05-04] MEDS: PEMBROLIZUMAB 200 MG, TUBING PRIMARY 1 EACH, In-line 0.2 micron filter set 1 EACH in 0.... 216 MG IVPB (10:33)
[2024-05-04] MEDS: SODIUM CHLORIDE 0.9 % (FLUSH) 10 ML SYRINGE IVF (10:34)
[2024-05-04 12:15] LABS: Vitamin B12* 486 pg/mL (243-894)
[2024-05-12] MEDS: HEPARIN 500 UNIT/5 ML SYRINGE IVF (15:12)
[2024-05-12] MEDS: SODIUM CHLORIDE 0.9 % (FLUSH) 10 ML SYRINGE IVF (15:12)
[2024-05-25 08:42] LABS: Basophils Percent Auto 0.5 % (0.0-3.0); Eosinophils Percent Auto 4.8 % (0.0-7.0); Hematocrit 38.1 % (33.0-51.0); Hemoglobin* 12.9 gm/dL (12.0-16.0); Lymphocytes Percent Auto 34.3 % (20-44); Mean Corpuscular HGB Conc 34 gm/dL (32-36); Mean Corpuscular Hemoglobin 33 pg (26-34); Mean Corpuscular Volume 98 fL (80-100); Monocytes Percent Auto 10.2 % (0.0-11.0); Neutrophils Percent Auto 50.2 % (42.0-72.0); RDW Coefficient of Variation % 13.9 % (11.5-15.5); Red Blood Count 3.88 m/uL (4.00-5.20); White Blood Count* 3.94 K/uL (4.50-11.00)
[2024-05-25 08:44] LABS: Chloride* 107 mmol/L (96-114); Potassium* 3.8 mmol/L (3.6-5.1); Sodium* 136 mmol/L (135-149)
[2024-05-25 08:46] LABS: Anion Gap 6 mEq/L (7-15); Aspartate Amino Transferase* 32 U/L (12-35); Bilirubin Total* 0.9 mg/dL (0.1-1.5); Carbon Dioxide* 23 mmol/L (20-32); Creatinine* 0.8 mg/dL (0.5-1.5); Estimated Glomerular Filt Rate 87 ml/min
[2024-05-25 08:47] LABS: Alanine Aminotransferase* 26 U/L (4-35); Alkaline Phosphatase* 52 U/L (40-150); Blood Urea Nitrogen* 20 mg/dL (7-30); Calcium* 8.8 mg/dL (8.4-10.6); Glucose* 127 mg/dL (60-115); Total Protein* 6.2 g/dL (6.0-8.3)
[2024-05-25 09:13] LABS: Platelet Count* 150 K/uL (140-440); Slide Review Reflex No
[2024-05-25] MEDS: SODIUM CHLORIDE 0.9 % (FLUSH) 10 ML SYRINGE IVF (09:45)
[2024-05-25] MEDS: 0.9 % SODIUM CHLORIDE 250 ml IV ×2 (09:45→10:30)
[2024-05-25] MEDS: PEMBROLIZUMAB 200 MG, TUBING PRIMARY 1 EACH, In-line 0.2 micron filter set 1 EACH in 0.... 216 MG IVPB (09:54)
[2024-05-25] MEDS: HEPARIN 500 UNIT/5 ML SYRINGE IVF (10:30)
[2024-06-22 08:27] LABS: Basophils Percent Auto 0.3 % (0.0-3.0); Eosinophils Percent Auto 5.7 % (0.0-7.0); Hemoglobin* 13.2 gm/dL (12.0-16.0); Lymphocytes Percent Auto 27.5 % (20-44); Mean Corpuscular HGB Conc 34 gm/dL (32-36); Mean Corpuscular Hemoglobin 34 pg (26-34); Mean Corpuscular Volume 100 fL (80-100); Monocytes Percent Auto 9.1 % (0.0-11.0); Neutrophils Percent Auto 57.4 % (42.0-72.0); Platelet Count* 127 K/uL (140-440); RDW Coefficient of Variation % 13.2 % (11.5-15.5); White Blood Count* 3.53 K/uL (4.50-11.00)
[2024-06-22 08:30] LABS: Slide Review Reflex No
[2024-06-22 08:34] LABS: Albumin* 4.2 g/dL (3.3-5.0); Chloride* 107 mmol/L (96-114)
[2024-06-22 08:35] LABS: Potassium* 4.1 mmol/L (3.6-5.1); Sodium* 138 mmol/L (135-149)
[2024-06-22 08:37] LABS: Alkaline Phosphatase* 75 U/L (40-150); Anion Gap 6 mEq/L (7-15); Aspartate Amino Transferase* 31 U/L (12-35); Bilirubin Total* 0.7 mg/dL (0.1-1.5); Blood Urea Nitrogen* 14 mg/dL (7-30); Carbon Dioxide* 25 mmol/L (20-32); Creatinine* 0.8 mg/dL (0.5-1.5); Estimated Glomerular Filt Rate 87 ml/min; Total Protein* 6.5 g/dL (6.0-8.3)
[2024-06-22 08:38] LABS: Alanine Aminotransferase* 28 U/L (4-35); Glucose* 134 mg/dL (60-115)
[2024-06-22] MEDS: SODIUM CHLORIDE 0.9 % (FLUSH) 10 ML SYRINGE IVF (08:53)
[2024-06-22] MEDS: HEPARIN 500 UNIT/5 ML SYRINGE IVF (08:54)
[2024-07-30 13:53] LABS: Basophils Absolute Auto 0.03 K/uL (0.00-0.30); Basophils Percent Auto 0.6 % (0.0-3.0); Eosinophils Absolute Auto 0.22 K/uL (0.00-0.50); Eosinophils Percent Auto 4.2 % (0.0-7.0); Hematocrit 41.8 % (33.0-51.0); Hemoglobin* 13.9 gm/dL (12.0-16.0); Immature Granulocytes Abs Auto 0.01 K/uL (0.00-0.30); Immature Granulocytes Pct Auto 0.2 %; Lymphocytes Absolute Auto 1.31 K/uL (0.90-2.90); Lymphocytes Percent Auto 25.2 % (20-44); Mean Corpuscular HGB Conc 33 gm/dL (32-36); Mean Corpuscular Hemoglobin 32 pg (26-34); Mean Corpuscular Volume 96 fL (80-100); Monocytes Percent Auto 9.6 % (0.0-11.0); Neutrophils Absolute Auto 3.12 K/uL (1.7-7.0); Neutrophils Percent Auto 60.2 % (42.0-72.0); Platelet Count* 113 K/uL (140-440); RDW Coefficient of Variation % 11.7 % (11.5-15.5); Red Blood Count 4.34 m/uL (4.00-5.20); White Blood Count* 5.19 K/uL (4.50-11.00)
[2024-07-30 14:03] LABS: Slide Review Reflex No
[2024-07-30 14:12] LABS: Albumin* 4.6 g/dL (3.3-5.0); Chloride* 103 mmol/L (96-114); Sodium* 134 mmol/L (135-149)
[2024-07-30 14:13] LABS: Potassium* 4.1 mmol/L (3.6-5.1)
[2024-07-30 14:15] LABS: Alanine Aminotransferase* 39 U/L (4-35); Alkaline Phosphatase* 68 U/L (40-150); Anion Gap 8 mEq/L (7-15); Aspartate Amino Transferase* 36 U/L (12-35); Bilirubin Total* 0.9 mg/dL (0.1-1.5); Blood Urea Nitrogen* 21 mg/dL (7-30); Carbon Dioxide* 23 mmol/L (20-32); Creatinine* 0.8 mg/dL (0.5-1.5); Est. Creatinine Clearance* 74.38; Estimated Glomerular Filt Rate 87 ml/min; Glucose* 99 mg/dL (60-115); Total Protein* 7.2 g/dL (6.0-8.3)
[2024-07-30 14:16] LABS: Calcium* 9.1 mg/dL (8.4-10.6)
[2024-07-30] MEDS: HEPARIN 500 UNIT/5 ML SYRINGE IVF (15:35)
[2024-07-30] MEDS: SODIUM CHLORIDE 0.9 % (FLUSH) 10 ML SYRINGE IVF (15:35)
--- NOTE | 2024-08-05 13:55 | ONC.NURNOTE ---
Called patient to scheduled 3 month follow up, no answer. LVM for patient to call back to schedule.
== END 2024-10-10 23:59 | disposition home or self-care (01) ==
LOC: CCIC 13:30
PROVIDERS: Physician Assistant; PCP Family Medicine; Referring Provider Family Medicine; Visit Provider Internal Medicine Hematology & Oncology
DX: C50.911 Malignant neoplasm of unspecified site of right female breast (principal); Z17.1 Estrogen receptor negative status [ER-]; Z90.13 Acquired absence of bilateral breasts and nipples; G62.9 Polyneuropathy, unspecified
CPT/HCPCS: 36415; 36591; 70553; 80053; 81513; 82607; 83735; 84443; 85025; 87481; 87661; 96413; 99211; 99214; 99215; G0463; A9575; J1642; J7050; J9271

== ENCOUNTER 2024-11-12 14:52 | Outpatient (CLI) | payer OTHER, SELFPAY | END 2024-11-12 14:53 | disposition home or self-care (01) | LOC: NFLDREF 11-23 02:07 | PROVIDERS: Visit Provider Orthopaedic Surgery Sports Medicine | DX: M17.12 Unilateral primary osteoarthritis, left knee (principal) | CPT/HCPCS: 87070; 87075; 87205; 89051; 89060 ==

== ENCOUNTER 2024-12-30 08:59 | Outpatient (CLI) | payer OTHER, SELFPAY | END 2024-12-30 09:00 | disposition home or self-care (01) | LOC: MRI 09:00 | PROVIDERS: PCP Family Medicine; Visit Provider Orthopaedic Surgery Sports Medicine | DX: M25.561 Pain in right knee (principal); M22.41 Chondromalacia patellae, right knee; M25.461 Effusion, right knee | CPT/HCPCS: 73721 ==

== ENCOUNTER 2025-01-14 15:44 | Outpatient (CLI) | payer OTHER, SELFPAY ==
--- NOTE | 2025-01-14 16:30 | CRLHL7_ITS ---
For Patients: As a result of the Century Cures Act, medical imaging exams and procedure reports are released immediately into your electronic medical record. You may view this report before your referring provider. If you have questions, please contact your health care provider. PET CT SKULL TO THIGH History: Breast cancer Technique: The patient was injected with 10.3 millicuries of 18F-FDG (fluorodeoxyglucose). Following the appropriate delay interval, PET imaging from the mid brain to the mid thigh was obtained in conjunction with a noncontrast CT examination for improved localization and attenuation correction. The fused volume set was reviewed utilizing 3-D reconstruction. Blood glucose:81 Comparison: PET-CT 07/30/2024 Findings: Max SUV within the liver today is 3.8, previously 4.2 PET: Head and Neck: The paired glandular structures and muscles of the neck are symmetrical. No focal area of increased uptake is identified. Thorax: Postsurgical changes of bilateral mastectomies with bilateral breast implants. Normal physiologic distribution within the cardiovascular system. No focal areas of increased uptake are noted in the lung daley or mediastinum. Abdomen/Pelvis: No focal areas of increased uptake. Bones/soft tissues: No focal areas of increased uptake. ADDITIONAL CT findings include diffuse hepatic steatosis, hysterectomy, few scattered colonic diverticula, and mild degenerative changes within the lower lumbar spine. IMPRESSION: Stable study. Dictated by Jevon Lee MD @ 01/15/2025 4:35:05 PM (Electronically Signed)
== END 2025-01-14 15:45 | disposition home or self-care (01) ==
LOC: RAD 15:44
PROVIDERS: PCP Family Medicine; Visit Provider Physician Assistant
DX: C50.811 Malignant neoplasm of overlapping sites of right female breast (principal)
CPT/HCPCS: 78815; A9552

== ENCOUNTER 2025-02-02 10:49 | Outpatient (CLI) | payer OTHER, SELFPAY | END 2025-02-02 10:50 | disposition home or self-care (01) | PROVIDERS: PCP Family Medicine; Visit Provider Family Medicine | DX: E03.9 Hypothyroidism, unspecified (principal); E53.8 Deficiency of other specified B group vitamins; R74.01 Elevation of levels of liver transaminase levels; D69.6 Thrombocytopenia, unspecified; Z11.59 Encounter for screening for other viral diseases | CPT/HCPCS: 80053; 80061; 82607; 84439; 84443; 86803 ==

== ENCOUNTER 2025-02-08 10:39 | Outpatient (CLI) | payer OTHER, SELFPAY ==
[2025-02-08 13:35] LABS: Basophils Absolute Auto 0.02 K/uL (0.00-0.30); Basophils Percent Auto 0.4 % (0.0-3.0); Eosinophils Absolute Auto 0.19 K/uL (0.00-0.50); Eosinophils Percent Auto 3.3 % (0.0-7.0); Hematocrit 41.7 % (33.0-51.0); Hemoglobin* 13.8 gm/dL (12.0-16.0); Immature Granulocytes Abs Auto 0.02 K/uL (0.00-0.30); Immature Granulocytes Pct Auto 0.4 %; Lymphocytes Absolute Auto 1.43 K/uL (0.90-2.90); Mean Corpuscular HGB Conc 33 gm/dL (32-36); Mean Corpuscular Hemoglobin 30 pg (26-34); Mean Corpuscular Volume 92 fL (80-100); Neutrophils Absolute Auto 3.65 K/uL (1.7-7.0); Neutrophils Percent Auto 63.9 % (42.0-72.0); Platelet Count* 125 K/uL (140-440); Red Blood Count 4.55 m/uL (4.00-5.20); White Blood Count* 5.71 K/uL (4.50-11.00)
[2025-02-08 13:44] LABS: Slide Review Reflex No
[2025-02-08 14:11] LABS: Erythrocyte SedimentationRate* 9 mm/hr (2-20)
[2025-02-08 14:23] LABS: Free T4 Free Thyroxine* 0.75 ng/dL (0.70-1.85)
[2025-02-08 14:52] LABS: C Reactive Protein* 2.5 mg/dL (0.5-1.0)
[2025-02-09 13:10] LABS: Rheumatoid Factor <10 IU/mL (0-14); Thyroid Stimulating Hormone 3.88 mU/L (0.27-4.20); Total T3 98 ng/dL (80-200); Total T4, Thyroxine 6.23 ug/dL (4.50-11.70)
[2025-02-09 14:55] LABS: Lyme ELISA Reflex 0.14 IV (<=0.90)
== END 2025-02-08 10:40 | disposition home or self-care (01) ==
LOC: NPINS 10:42
PROVIDERS: PCP Family Medicine; Visit Provider Orthopaedic Surgery
DX: M25.561 Pain in right knee (principal); M79.89 Other specified soft tissue disorders
CPT/HCPCS: 84436; 84439; 84443; 84480; 84550; 85025; 85651; 86039; 86140; 86431; 86618

== ENCOUNTER 2025-02-12 11:02 | Outpatient (CLI) | payer OTHER, SELFPAY | END 2025-02-12 11:03 | disposition home or self-care (01) | PROVIDERS: PCP Family Medicine; Visit Provider Family Medicine | DX: E03.9 Hypothyroidism, unspecified (principal); R79.82 Elevated C-reactive protein (CRP) | CPT/HCPCS: 86140; 86376 ==

== ENCOUNTER 2025-02-17 08:30 | Outpatient (RCR) | payer OTHER, SELFPAY ==
--- NOTE | 2025-01-01 15:29 | ONC.NURNOTE ---
Patient called [facility] to report a new breast lump that she felt this week. She describes it as pea sized. Patient scheduled to see Desi Schafer PA-C on 01/07 for assessment.
== END 2025-04-24 23:59 | disposition home or self-care (01) ==
LOC: CCIC 08:30
PROVIDERS: Referring Provider Family Medicine; Visit Provider Internal Medicine Hematology & Oncology
DX: C50.911 Malignant neoplasm of unspecified site of right female breast (principal); Z17.1 Estrogen receptor negative status [ER-]; G62.0 Drug-induced polyneuropathy; T45.1X5A Adverse effect of antineoplastic and immunosuppressive drugs, initial encounter; Z90.13 Acquired absence of bilateral breasts and nipples; Z90.710 Acquired absence of both cervix and uterus
CPT/HCPCS: 99214; 99215; G0463